=== PATIENT | female | born 1950 | race Caucasian/White ===

== ENCOUNTER 2018-11-16 10:52 | Inpatient (IN) | payer MEDICARE, OTHER, SELFPAY ==
[2018-11-16] VITALS (11 sets, daily range): BP systolic 115–141; BP diastolic 53–66; PULSE 57–81; RESP 12–18; TEMP 36.7–37.2; O2SAT 89–98; BMI 31.9; BMI 30.2
--- NOTE | 2018-11-16 11:11 | CT_ITS ---
STUDY: CT BRAIN WITHOUT CONTRAST REASON FOR EXAM: Female, 68 years old. Syncope. Increasing weakness. RADIATION DOSAGE (If Supplied By Facility): CTDIvol = ( 60.81 ) mGy, DLP = ( 1067.08 ) mGycm TECHNIQUE: Transaxial CT imaging of the brain was performed without administration of intravenous contrast material. Individualized dose optimization techniques were used for this CT. COMPARISON: No relevant priors. FINDINGS: Normal soft tissue structures. Normal calvarium. There is disproportionate enlargement of the lateral and third ventricles, as compared to the extra-axial spaces. The findings suggest normal pressure hydrocephalus (NPH). Normal white matter tracts of the cerebral hemispheres. Normal basal ganglia and thalami. Normal brainstem. Normal cerebellum. There is no intracranial hemorrhage. There are no findings of an acute ischemic infarction. Atherosclerotic calcification of the cavernous portions of the internal carotid arteries bilaterally. Normal visualized paranasal sinuses. CT/Brain/Head without Contrast IMPRESSION: Findings suggestive of normal pressure hydrocephalus. Electronically Signed: [place], at 13:38 EDT , Service support ,
--- NOTE | 2018-11-16 11:12 | EKG12_ITS ---
Test Reason : DIZZY Blood Pressure : / mmHG Vent. Rate : 073 BPM Atrial Rate : 073 BPM P-R Int : 218 ms QRS Dur : 086 ms QT Int : 396 ms P-R-T Axes : 038 004 043 degrees QTc Int : 436 ms Sinus rhythm with 1st degree A-V block Possible Anterolateral infarct , age undetermined Abnormal ECG Confirmed by JENNEI ALVARENGA, JUAN PABLO ([id number]), editor continuity and script PREETI MOHAMUD ([id number]) on 11/18/2018 9:13:56 AM Referred By: Nataly Avelar Confirmed By:JUAN PABLO SCHNEIDER MD
[2018-11-16] MEDS: 0.9% Normal Saline 1,000 ML 1000 ML IV (11:20)
[2018-11-16 11:57] LABS: Absolute Lymphocyte Count 1.09 X10^3/ul (0.83-4.51); Absolute Neutrophil Count 3.4 X10^3/uL (2.0-7.7); Basophil# 0.02 X10^3/uL; Basophil% 0.4 % (0-1); Hematocrit 44.6 % (37-47); Hemoglobin 15.2 g/dl (12.0-15.0); Lymphocyte # 1.09 X10^3/ul (4.0); Lymphocyte % 21.7 % (19-41); Mean Corp Hgb Conc 34.1 g/gl (32-36); Mean Corpuscular Hgb 31.4 pg (27.0-32.0); Mean Corpuscular Volume 92.1 fL (81-99); Mean Platelet Vol. 11.4 fl (6.2-12.0); Monocyte# 0.51 X10^3/uL; Monocyte% 10.2 % (0-10); Neutrophil # 3.39 X10^3/uL (2.7-7.7); Neutrophil % 67.5 % (47-70); Platelet Count 178 K/mm3 (150-450); RBC Distribution Width SD 46.4 fl (35.1-43.9); Red Blood Count 4.84 M/mm3 (4.2-5.4)
[2018-11-16 11:58] LABS: POSITIVE COUNT NO; POSITIVE DIFFERENTIAL NO; POSITIVE MORPHOLOGY NO
[2018-11-16 12:51] LABS: Anion Gap 5 (5-15); BUN 10 mg/dL (7-18); BUN/Creat Ratio 8.7 RATIO (10-20); Calcium,Total 7.8 mg/dL (8.5-10.1); Chloride 107 mmol/L (98-107); Creatinine, Serum 1.15 mg/dL (0.55-1.02); EST Glomerular Filtration Rate 50 mL/min (>60); Est Glom Filt Rate - Afr Amer 60 mL/min (>60); Estimated Creatinine Clearance 39.31 ml/min; Glucose 97 mg/dL (74-106); Potassium 3.6 mmol/L (3.5-5.1); Sodium Level 137 mmol/L (136-145)
[2018-11-16 13:11] LABS: Lactic Acid 1.2 mmol/L (0.4-2.0)
--- NOTE | 2018-11-16 14:08 | RAD_ITS ---
STUDY: X-RAY CHEST REASON FOR EXAM: Female, 68 years old. Chest pain after injury. TECHNIQUE: Single AP portable view of the chest. COMPARISON: Prior comparison studies are not available for review at this time. FINDINGS: Cardiac monitoring leads are present. The lungs are expanded. There may be subsegmental atelectasis in the mid right lung and left lung base. There is interstitial thickening present in both lungs. There is no demonstrated pleural abnormality. Normal size heart. Normal mediastinum and juvencio. Normal visualized pulmonary arteries. There is atherosclerotic calcification of the aortic arch with tortuosity. There is demineralization of the osseous structures. Normal visualized ribs, clavicles, and shoulders. There is no demonstrated abnormality of the visualized soft tissue structures of the upper abdomen. RAD/Chest 1 View (Portable) IMPRESSION: Bilateral basilar subsegmental atelectasis. Electronically Signed: Cee Bran MD at 17:13 EDT , Service support ,
--- NOTE | 2018-11-16 14:11 | NURSING ---
PCU OBS SYNCOPE, DIARRHEA PAINTSIL
--- NOTE | 2018-11-16 14:12 | ED.DCSUM_ITS ---
- ER Visit Summary Date of Service: 11/16/18 Chief Complaint: [Diarrhea, generalized weakness, syncope] History of Present Illness: The patient is a 68 F [presents the emergency department stating that she has not been feeling well for about for 5 days. Patient had loose stool multiple episodes over the last several days and had 2 episodes today. Patient feels lightheaded with standing and walking. Today she went to the restroom and while on the toilet patient had a syncopal episode her found her on the bathroom floor. Patient denies recent antibiotics. She denies any fevers. Patient states that she has been having frequent headaches. She denies any abdominal pain. Denies chest pain or shortness of breath. Patient was noted on arrival to had a low O2 sat of 89% on room air. Patient was placed on oxygen on arrival the emergency department.] Physical Examination: [HEENT-PERRLA, EOMI. Cranial nerves II through XII grossly intact. TMs clear. Mucous membranes moist. No adenopathy. Cardiovascular-regular rate and rhythm without murmur or ectopy Lungs-clear to auscultation, chest wall stable without crepitus or subcu emphysema Abdomen-normoactive bowel sounds, soft, nontender, no rebound or rigidity, no peritoneal signs. Extremities-intact ?4, normal range of motion, normal pulses, atraumatic] Test Results: [EKG obtained arrival shows sinus rhythm with a ventricular rate of 73 bpm with no acute I segment changes. CBC with differential is normal. Chemistries unremarkable. Troponin was less than 0.015. CT scan of the brain showed normal pressure hydrocephalus.] Emergency Department Course and Treatment: [Patient was given normal saline.] Treatment Plan: [Admit for observation.] Disposition: [Admit] Impression: [Syncope Diarrhea-suspect viral Normal pressure hydrocephalus] This note was generated with [employer] dictation software. It may contain incorrect words, spelling, and punctuation that were not noted in review of the chart prior to signing ED Disposition - Plan for ED Patient: Referrals: Efren Evans MD [Primary Care Provider] -
--- NOTE | 2018-11-16 14:13 | PCM.HP.STD ---
Problem List (1) Syncope Status: Acute Qualifiers: Syncope type: unspecified Qualified Code(s): R55 - Syncope and collapse (2) Anxiety and depression Status: Chronic (3) Chronic back pain Status: Chronic Qualifiers: Back pain laterality: unspecified Sciatica laterality: sciatica laterality unspecified History of Present Illness Date of Admission: 11/16/18 Chief Complaint: Syncope The patient is a 68 year old F past medical history of chronic back pain, anxiety/depression, irritable bowel syndrome, who comes in after an episode of syncope. Patient felt unwell this morning when she woke up, felt dizzy, will to go use the bathroom. While was in the bathroom, felt unwell, felt dizzy, felt nauseous and had a syncopal episode. She woke up not long after. Her heard a thump and went into the bathroom and found her on the floor. She denied any prior chest pain or palpitations of recent illness or diarrhea. She did not have any incontinence of stool or urine or biting of tongue. She has been having loose stools, usually has about 2 or 3 a day, had had 2 stools prior to arrival. Vitals in the ED show blood pressure 115/53, temperature of 90 8.3F, heart rate 69, respiratory 22, SPO2 was 89% on room air. Admitting CBC D was unremarkable, BMP showed creatinine of 1.15, slightly elevated from previous 0.98. Openings were negative. UA was unremarkable. EKG shows normal sinus rhythm, poor R wave progression. CT scan of the brain was suggestive of normal pressure hydrocephalus. Chest x-ray shows bilateral basilar subsegmental atelectasis Past Medical History Past Medical History (Chronic Problems): Chronic Problems Anxiety and depression (Chronic) Chronic back pain (Chronic) Allergies codeine Allergy (Verified 11/16/18 10:53) Other Home Medications: Ambulatory Orders Medication Instructions Recorded Baclofen [Lioresal] 10 mg PO TID PRN PRN 11/16/18 Lamotrigine 200 mg PO QHS 11/16/18 Oxybutynin [Ditropan] 5 mg PO QHS 11/16/18 Venlafaxine HCl [Venlafaxine HCl 37.5 mg PO QHS 11/16/18 ER] traZODone [Desyrel] 75 mg PO QHS 04/16/19 Surgical History: adenoidectomy, appendectomy, cholecystectomy, hysterectomy, tonsillectomy Psychiatric History: Anxiety, Depression 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 Denies: Anorexia, Chills, Fever, Malaise, Weight Change, Fatigue Eyes: Denies: Blurred vision, Cataracts, Conjunctivae Inflammation, Pain, Redness HEENT: Denies: Difficulty Hearing, Difficulty Swallowing, Head Aches, Hearing Changes, Sinus Congestion, Sinus Drainage Cardiovascular: Reports: Light Headedness, Syncope. Denies: Chest Pain, Claudication, Orthopnea, Palpitations, Paroxysmal Noc. Dyspnea Respiratory: Denies: Cough, Hemoptysis, Shortness of breath at rest, Shortness of breath upon exertion, Sputum production Gastrointestinal: Denies: Abdominal Pain, Constipation, Hematemesis, Nausea, Vomiting Genitourinary: Denies: Dysuria, Frequency Musculoskeletal: Denies: Joint Pain, Joint stiffness, Joint swelling, Joint Tenderness Skin: Denies: Rash, Wounds Neurological: Denies: Difficulty swallowing, Focal weakness, Numbness, Tingling Psychiatric: Denies: Anxiety, Depression, Homicidal Ideations, Suicidal Ideations Hematologic/ Lymphatic: Denies: Easy Bruising, Easy Bleeding VTE Information - Inpt Only VTE Present on Admission: No VTE Pharm Prophylaxis ordered?: Yes Patient Problems: Active and Suspected Problems Syncope (Acute) - Physical Exam General: Alert, Oriented x3, Cooperative, No apparent distress, - - on 2L oxygen HEENT: Atraumatic, PERRLA, EOMI, Normocephalic Oral: Moist Mucosa Neck: Supple Lungs: Normal air movement, Diminished Cardiovascular: Regular rate, Regular Rhythm, Normal S1, Normal S2, No murmurs Abdomen: Bowel Sounds Present, Soft, Non Tender, Non-Distended, No Hepato-splenomegaly Extremities: No edema Skin: No rashes, No breakdown Musculoskeletal: No Tenderness to Palpation of Joints or Extremities Lymphatic: No Cervical, Supraclavicular, or Inguinal Adenopathy Neurological: Cranial nerves II-XII grossly intact, Neuro grossly intact Psych/Mental Status: Normal Affect, Appropriate Vital Signs Temp Pulse Resp BP Pulse Ox 98.3 F 69 12 115/53 L 89 11/16/18 10:54 11/16/18 10:54 11/16/18 10:54 11/16/18 10:54 11/16/18 10:54 Oxygen Delivery Method Room Air Weight: 84.4 kg Body Mass Index (BMI) 31.9 Laboratory Tests Past 24 Hrs 11/16/18 11/16/18 11/16/18 11:33 11:35 11:35 WBC 5.0 RBC 4.84 Hgb 15.2 H Hct 44.6 MCV 92.1 MCH 31.4 MCHC 34.1 RDW 14.0 RDW Differential 46.4 H Plt Count 178 MPV 11.4 Immature Gran % (Auto) 0.200 Neut % (Auto) 67.5 Lymph % (Auto) 21.7 [place] % (Auto) 10.2 H Eos % (Auto) 0.0 Baso % (Auto) 0.4 Absolute Neuts (auto) 3.4 Absolute Lymphs (auto) 1.09 Total Counted Not Reportable Sodium Cancelled Potassium Cancelled Chloride Cancelled Carbon Dioxide Cancelled Anion Gap Cancelled BUN Cancelled Creatinine Cancelled Estim Creat Clear Calc Cancelled Est GFR (MDRD) Af Amer Cancelled Est GFR (MDRD) Non-Af Cancelled BUN/Creatinine Ratio Cancelled Glucose Cancelled Lactic Acid Cancelled Calcium Cancelled Troponin I Cancelled 11/16/18 11/16/18 12:25 12:25 WBC RBC Hgb Hct MCV MCH MCHC RDW RDW Differential Plt Count MPV Immature Gran % (Auto) Neut % (Auto) Lymph % (Auto) [place] % (Auto) Eos % (Auto) Baso % (Auto) Absolute Neuts (auto) Absolute Lymphs (auto) Total Counted Sodium 137 Potassium 3.6 Chloride 107 Carbon Dioxide 25.0 Anion Gap 5 BUN 10 Creatinine 1.15 H Estim Creat Clear Calc 39.31 Est GFR (MDRD) Af Amer 60 Est GFR (MDRD) Non-Af 50 L BUN/Creatinine Ratio 8.7 L Glucose 97 Lactic Acid 1.2 Calcium 7.8 L Troponin I < 0.015 Assessment/Plan All Active Problems Syncope (Acute) 68 year old F past medical history of chronic back pain, anxiety/depression, irritable bowel syndrome, who comes in after an episode of syncope. Patient's vitals were stable except for hypoxia. She says chronic smoker, no known history of COPD. 1. Syncope, likely related to dehydration and orthostatic hypotension creatinine was elevated on admission compared to her baseline, history of irritable bowel syndrome, with chronic diarrhea Plan: Admit to PCU, check orthostatic vitals, IVF, recheck orthostatic vitals every shift, 2D echo, monitor on telemetry, trend troponins 2. Hypoxia, likely secondary to atelectasis versus insidious COPD Patient is a known smoker, was saturating at 89% on admission, improved to 98% on 2 L oxygen Chest x-ray shows atelectasis Will continue on oxygen, wean off for SPO2 more than 92-94%, incentive spirometer If hypoxia persists, patient may benefit from pulmonary function testing in the outpatient 3. Anxiety/depression/chronic back pain, continue home regimen 4. Chronic diarrhea, history of irritable bowel syndrome, check stool for enteric pathogens 5. Nicotine dependence, will put on replacement 6. DVT PPx- Heparin SC Code Visit Inpatient E&M: 70478 Init Hosp L3
[2018-11-16 15:44] LABS: Mucous, Urine 0 SEEN /hpf (<or=2+); Squamous Epithelial Cells - UA 0 SEEN /hpf (5-10)
--- NOTE | 2018-11-16 15:55 | CASEMGMT ---
RN CM Assessment Introduced role of RN CM to patient, patient Rene and family at bedside.? Patient is alert, oriented and able?to participate in RN CM Assessment. ?Care providers, pharmacy, and demographics verified. Presentation: Diarrhea, Syncope Admit Dx: Syncope Re-Admit: No Barriers/Issues: Does not have Prescription coverage, Provided a few Rx savings Cards to possibly help with regular home medications. PCP: Efren Evans Specialists: None Preferred [facility]acy: [facility] Insurance: [employer], [facility] Rx Benefit:?No ?LNOK: Rene Dragan LW/HPOA: No, states was just given information on it. Living Arrangements:? Lives with in a 2 story home, 3-4 steps to enter. ADL?s: Independent with ambulation and ADL's. Transportation: Patient drives, to transport on DC DME: None HHC: None SNF: None Goal: Home DC PLAN: Home with no anticipated needs identified at this time. Israel Lundy RNCM
[2018-11-16 15:57] LABS: Color, Urine Yellow (Yellow); Glucose, Dipstick Normal (Normal); Ketone-Dipstick Negative (Negative); Leukocyte Esterase-Dipstick 25 /ul (Negative); Nitrite-Dipstick Negative (Negative); Occult Blood-Urine 150 /ul (Negative); Protein-Dipstick Negative (Negative); Urine Bilirubin Dipstick Negative (Negative); Urine Clarity Clear (Clear); Urine Urobilinogen Normal (Normal)
--- NOTE | 2018-11-16 16:05 | ECHOD_ITS ---
Reason For Study: SYNCOPE Procedure This was a 2D Doppler, Color Flow transthoracic echocardiogram. Exam performed portable in patient room. Left Ventricle Normal size and thickness. The estimated ejection fraction is 75 %. Stage 1 diastolic dysfunction. No regional wall motion abnormalities noted. Right Ventricle Normal size and thickness. Normal systolic function. Atria Normal left atrium. Normal right atrium. Normal atrial septum. Mitral Valve The mitral valve is structurally normal. No prolapse or stenosis seen. Trivial mitral valve insufficiency. Tricuspid Valve Normal tricuspid valve. Mild (1+) tricuspid valve insufficiency. Right ventricular systolic pressure estimated to be 22 mmHg. Aortic Valve Trisinus/trileaflet aortic valve. Mild diffuse aortic valve thickening. Trivial aortic valve insufficiency. Pulmonic Valve Normal pulmonic valve. Great Vessels Normal aortic root. Normal arch. Normal inferior vena cava. Inferior vena cava collapse with sniff. Pericardium/Pleural No pericardial effusion. MMode/2D Measurements & Calculations LVIDd: 4.7 cm IVSd: 1.1 cm Ao root diam: 3.2 cm LVIDs: 3.0 cm LVPWd: 1.1 cm RVDd: 3.6 cm FS: 35.4 % LAV(MOD-bp): 39.2 ml LVAd ap4: 22.7 cm2 SV(MOD-sp4): 35.4 ml LAV(MOD-bp) Indexed: 21.2 ml/m2 EDV(MOD-sp4): 58.5 ml LAV(MOD-sp2): 43.0 ml EDV(sp4-el): 61.5 ml LAV(MOD-sp4): 35.4 ml LVAs ap4: 12.7 cm2 ESV(MOD-sp4): 23.1 ml ESV(sp4-el): 24.3 ml EF(MOD-sp4): 60.5 % EF(sp4-el): 60.6 % SV(sp4-el): 37.2 ml LA A4 area: 14.5 cm2 LA dimension(2D): 3.3 cm RA A4 area: 12.6 cm2 Time Measurements MV dec time: 0.27 sec Doppler Measurements & Calculations MV E max shailesh: 81.6 cm/sec Lat Peak E' Shailesh: 8.5 cm/sec Med Peak E' Shailesh: 6.3 cm/sec MV A max shailesh: 97.8 cm/sec E/E' lat: 9.7 E/E' med: 12.9 MV E/A: 0.83 Ao V2 max: 119.6 cm/sec AI max shailesh: 305.9 cm/sec LV V1 max: 108.1 cm/sec Ao max P.7 mmHg AI max P.4 mmHg LV V1 max P.7 mmHg AI dec slope: 211.6 cm/sec2 AI P1/2t: 423.4 msec TR max shailesh: 208.8 cm/sec TR max P.4 mmHg Interpretation Summary The estimated ejection fraction is 75 %. Stage 1 diastolic dysfunction. Trivial mitral valve insufficiency. Mild (1+) tricuspid valve insufficiency. Right ventricular systolic pressure estimated to be 22 mmHg. Trivial aortic valve insufficiency. There is no comparison study available. Ordering Physician: Nataly Avelar Referring Physician: SKYLAR SANCHEZ Performed By: Linda Piedra, KIMCS, RVT
[2018-11-16 16:15] LABS: Bacteria 1+ /hpf (None Seen); Red Blood Cells-Urine 0-5 SEEN /hpf (0-5); White Blood Cells 5-10 SEEN /hpf (0-5)
[2018-11-16 16:35] LABS: AST(SGOT) 25 U/L (15-37); Alanine Aminotransfer ALT/SGPT 19 U/L (13-56); Albumin, Serum 3.4 g/dL (3.2-5.0); Alkaline Phosphatase 90 U/L (45-117); Bilirubin, Direct 0.07 mg/dL (0.00-0.30); Globulin 3.5 g/dL (2.2-4.2); Protein, Total 6.9 g/dL (6.4-8.2)
[2018-11-16] MEDS: 0.9% Normal Saline 1,000 ML 100 ML IV (17:18)
[2018-11-16] MEDS: Ipratropium/Albuterol Sulfate 3 ML AMPUL.NEB INHALATION (19:30)
[2018-11-16] MEDS: Heparin Injection (Vial) 5,000 UNIT/ML VIAL 5000 UNIT SC (21:11)
[2018-11-16] MEDS: traZODone 50 MG Tablet 75 MG PO (23:38)
[2018-11-16] MEDS: lamoTRIgine 100 MG Tablet 200 MG PO (23:38)
[2018-11-16] MEDS: Venlafaxine XR 37.5 MG Capsule PO (23:39)
[2018-11-17] VITALS (12 sets, daily range): BP systolic 104–129; BP diastolic 54–85; PULSE 66–99; RESP 16–18; TEMP 37.1–37.9; O2SAT 93–95
[2018-11-17] MEDS: 0.9% Normal Saline 1,000 ML 100 ML IV (03:10)
[2018-11-17 05:37] LABS: Absolute Lymphocyte Count 1.25 X10^3/ul (0.83-4.51); Absolute Neutrophil Count 2.5 X10^3/uL (2.0-7.7); Basophil# 0.01 X10^3/uL; Basophil% 0.2 % (0-1); Eosinophil# 0.02 X10^3/uL; Eosinophils% 0.5 % (0-5); Hematocrit 41.3 % (37-47); Lymphocyte # 1.25 X10^3/ul (4.0); Lymphocyte % 29.7 % (19-41); Mean Corp Hgb Conc 33.9 g/gl (32-36); Mean Corpuscular Hgb 31.2 pg (27.0-32.0); Mean Platelet Vol. 11.4 fl (6.2-12.0); Monocyte# 0.44 X10^3/uL; Monocyte% 10.5 % (0-10); Neutrophil # 2.48 X10^3/uL (2.7-7.7); Neutrophil % 58.9 % (47-70); Platelet Count 164 K/mm3 (150-450); RBC Distribution Width CV 13.7 % (11.6-14.6); RBC Distribution Width SD 45.4 fl (35.1-43.9); Red Blood Count 4.49 M/mm3 (4.2-5.4); White Blood Count 4.2 K/mm3 (4.4-11.0)
[2018-11-17 05:43] LABS: POSITIVE COUNT NO; POSITIVE DIFFERENTIAL NO; POSITIVE MORPHOLOGY NO
[2018-11-17 05:57] LABS: Anion Gap 5 (5-15); BUN 15 mg/dL (7-18); BUN/Creat Ratio 16.8 RATIO (10-20); Calcium,Total 7.7 mg/dL (8.5-10.1); Chloride 109 mmol/L (98-107); Creatinine, Serum 0.89 mg/dL (0.55-1.02); EST Glomerular Filtration Rate 66 mL/min (>60); Est Glom Filt Rate - Afr Amer 80 mL/min (>60); Estimated Creatinine Clearance 50.79 ml/min; Glucose 96 mg/dL (74-106); Potassium 3.6 mmol/L (3.5-5.1); Sodium Level 138 mmol/L (136-145)
[2018-11-17] MEDS: Heparin Injection (Vial) 5,000 UNIT/ML VIAL 5000 UNIT SC ×2 (06:39→15:10)
[2018-11-17] MEDS: Ipratropium/Albuterol Sulfate 3 ML AMPUL.NEB INHALATION (07:46)
--- NOTE | 2018-11-17 17:10 | DCINST_ITS ---
- Discharge Diagnoses Current Active Problems: Current Active and Chronic Problems Syncope (Acute) Anxiety and depression (Chronic) Chronic back pain (Chronic) You will use the following diet at home:: No restrictions Your food should be the consistency of: Regular Your liquids should be the consistency of: Regular/Thin Discharge Activity: Return to Normal Activity Weight Bearing Status: Full weight bearing Allergies/Adverse Reactions: Allergies codeine Allergy (Verified 11/16/18 10:53) Other Medications to take at Discharge Baclofen [Lioresal] 10 mg PO TID PRN PRN 11/16/18 Lamotrigine 200 mg PO QHS 11/16/18 Oxybutynin [Ditropan] 5 mg PO QHS 11/16/18 Venlafaxine HCl [Venlafaxine HCl ER] 37.5 mg PO QHS 11/16/18 traZODone [Desyrel] 75 mg PO QHS 11/16/18 Primary Care Physician: Efren Evans MD [Primary Care Provider] - Please follow up with your Primary Care Physician in: TWO WEEKS Test Results: Test results from this visit will be discussed in further detail at your follow- up appointment, if applicable.
--- NOTE | 2018-11-20 18:41 | DS.PCM_ITS ---
Discharge Date and Diagnosis Date of Admission: 11/16/18 Date of Discharge: 11/17/18 - Primary Discharge Diagnosis #1 vasovagal syncope #2 atelectasis #3 dehydration - Secondary Discharge Diagnosis Chronic Problems Anxiety and depression (Chronic) Chronic back pain (Chronic) Hospital Course and Treatment Operations: None Procedures: None Summary of Care Provided: The patient is a 68 year old F who was seen in the emergency room at [facility] with chief complaint of a syncopal episode while sitting on her commode in her bathroom. Work-up in the emergency room included labs which were unremarkable other than an elevated creatinine, CT of the brain showed indication of possible normal pressure hydrocephalus but the patient has no symptoms of normal pressure hydrocephalus. Chest x-ray showed atelectasis, patient's pulse ox was slightly low at 89% on room air. Patient was admitted to PCU, monitored on telemetry, echocardiogram was obtained which was unremarkable. On 11/17/2018, patient was seen and examined: On examination she appeared in good health and spirits. Vital signs as documented. Skin warm and dry and without overt rashes. Neck without JVD. Lungs clear. Heart exam notable for regular rhythm, normal sounds and absence of murmurs, rubs or gallops. Abdomen unremarkable and without evidence of organomegaly, masses, or abdominal aortic enlargement. Extremities nonedematous. Neuro: Cranial nerves II through XII are grossly intact, no focal motor deficits were noted, sensation to light touch and pinprick is intact. Psych: Patient is alert and oriented x3, she does not appear anxious or depressed On 11/17/2018, patient was seen and examined and felt to be in stable condition for discharge home - Physical Exam Vital Signs Temp Pulse Resp BP Pulse Ox 99.1 F 84 16 109/85 H 95 11/17/18 17:53 11/17/18 17:53 11/17/18 17:53 11/17/18 17:53 11/17/18 17:53 Oxygen Flow Rate (L/min) 2 Oxygen Delivery Method Room Air Weight: 79.9 kg Body Mass Index (BMI) 30.2 Discharge Activity: Return to Normal Activity Weight Bearing Status: Full weight bearing Home Medications: Medications to take at Discharge Baclofen [Lioresal] 10 mg PO TID PRN PRN 11/16/18 Lamotrigine 200 mg PO QHS 11/16/18 Oxybutynin [Ditropan] 5 mg PO QHS 11/16/18 Venlafaxine HCl [Venlafaxine HCl ER] 37.5 mg PO QHS 11/16/18 traZODone [Desyrel] 75 mg PO QHS 11/16/18 Primary Care Physician: Efren Evans MD [Primary Care Provider] - Please follow up with your Primary Care Physician in: TWO WEEKS Disposition: Home Minutes spent on discharge:: 31 Patient Condition:: Stable Medical Necessity - Tobacco Use Smoking Status: Current every day smoker Tobacco Use: Non-smoker Meaningful Use Info Meaningful Use Diagnoses (Choose all that apply): None applicable Code Visit Inpatient E&M: 37668 Disch Hosp
== END 2018-11-17 18:08 | disposition home or self-care (01) | DRG 641 ==
LOC: ED 14:55 → PCU 15:06
PROVIDERS: Admitting Provider Internal Medicine; Emergency Provider Emergency Medicine; Family Provider Family Medicine; PCP Family Medicine; Referring Provider Internal Medicine; Visit Provider Internal Medicine
DX: E86.0 Dehydration (principal); I95.1 Orthostatic hypotension; K58.0 Irritable bowel syndrome with diarrhea; G89.29 Other chronic pain; M54.9 Dorsalgia, unspecified; R09.02 Hypoxemia; F32.9 Major depressive disorder, single episode, unspecified; F41.9 Anxiety disorder, unspecified; F17.200 Nicotine dependence, unspecified, uncomplicated
CPT/HCPCS: 36415; 70450; 71045; 80048; 80076; 81001; 83605; 84484; 85025; 87506; 93005; 93306; 94640; 97161; 97165; 99285; 99406; J7030

== ENCOUNTER 2022-01-18 21:11 | Emergency (ER) | payer MEDICARE, SELFPAY ==
[2022-01-18 21:13] VITALS: BP 171/69; PULSE 56; RESP 16; TEMP 36.6; O2SAT 98; BMI 30.9
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
--- NOTE | 2022-01-18 21:53 | EDS_ITS ---
HPI History of Present Illness Chief Complaint: Fall Informant: patient and spouse/S.O. Narrative Narrative: 71-year-old female presents to the emergency room with low back pain. Patient states that 2 days ago she sustained a fall in the garage landing on her but tock. She notes that she felt a pop in her back. She tells me that in the 70s she had a lower lumbar back fusion. She states that this failed. She has had chronic low back pain since. She states that she did not feel much pain or difference in pain after the fall until Thursday morning when she woke up. She describes it is on both sides right greater than left and in the midline. She states both of her legs ache but there is no radicular pain. No bowel or bladder dysfunction other than her chronic urinary incontinence. No fevers. No red flag history. PFSH PFSH Medical History Anxiety Bipolar disorder Depression History of spinal fracture Hyperlipidemia Hypothyroidism Smoker Home Medications lamotrigine 200 mg tablet 25 mg PO DAILY DEPRESSION 11/16/18 [History Last Taken 11/15/18] trazodone 50 mg tablet 50 mg PO QHS sleep 11/16/18 [History Last Taken 11/15/18] venlafaxine 37.5 mg capsule,extended release 24 hr 37.5 mg PO QHS depression 11/16/18 [History Last Taken 11/15/18] aspirin 81 mg tablet,delayed release 81 mg PO DAILY 01/18/22 [History Last Taken Unknown] atorvastatin 20 mg tablet 20 mg PO DAILY 01/18/22 [History Last Taken Unknown] cholecalciferol (vitamin D3) 125 mcg (5,000 unit) tablet (Vitamin D3) 125 mcg PO DAILY 01/18/22 [History Last Taken Unknown] cyanocobalamin (vitamin B-12) 1,000 mcg tablet 1,000 mcg PO QODAY 01/18/22 [History Last Taken Unknown] famotidine 20 mg tablet 20 mg PO DAILY 01/18/22 [History Last Taken Unknown] folic acid 1 mg tablet 1 mg PO DAILY 01/18/22 [History Last Taken Unknown] levothyroxine 25 mcg tablet 25 mcg PO DAILY 01/18/22 [History Last Taken Unknown] meclizine 25 mg tablet 25 mg PO Q6H PRN PRN Dizziness 01/18/22 [History Last Taken Unknown] topiramate 50 mg tablet 50 tab PO BID 01/18/22 [History Last Taken Unknown] venlafaxine 75 mg tablet 75 mg PO DAILY 01/18/22 [History Last Taken Unknown] Allergy/AdvReac Type Severity Reaction Status Date / Time codeine Allergy Other Verified 01/18/22 21:41 Surgical History History of appendectomy History of cholecystectomy History of spinal fusion Social History (Updated 01/18/22 @ 21:[address] Navneet Sands DO) current gender identity: female Smoking Status: Current every day smoker tobacco type: cigarettes substance use type: does not use ROS ROS ED Constitutional Constitutional ED: Denies chills or weight loss Eyes Eyes: Denies change in vision or diplopia ENT ENT ED: Denies ear pain, rhinorrhea or sore throat Cardiovascular Cardiovascular: Denies chest pain, orthopnea, palpitations or racing heartbeat Respiratory/Chest Respiratory/Chest: Denies cough, dyspnea or orthopnea Gastrointestinal Gastrointestinal: Denies abdominal pain, diarrhea, nausea or vomiting Genitourinary Genitourinary ED: Denies dysuria, hematuria or urinary frequency Musculoskeletal Musculoskeletal: Reports back pain; Denies arthralgias, myalgias or neck pain Integumentary Denies abscess or rash Neurologic Neurologic: Denies headache(s), paresthesias or weakness Psychiatric Psychiatric: Denies anxiety, depression, suicidal ideation or suicidal thoughts Endocrine Endocrinology: Denies polydipsia, polyphagia or polyuria Allergic/Immunologic Allergic/Immunologic ED: Denies mouth swelling, tongue swelling or urticaria EXAM Physical Exam Const Vital Signs: 01/18/22 21:13 01/18/22 21:35 Temperature 97.8 F Temperature Source Temporal Pulse Rate 56 L Respiratory Rate 16 Respiratory Effort Normal Respiratory Depth Normal Respiratory Pattern Normal Blood Pressure 171/69 H Blood Pressure Mean 103 Pulse Ox 98 Oxygen Delivery Method Room Air Room Air Positive well nourished and well developed General Appearance ED: well developed HEENT Reports normocephalic, head/scalp atraumatic and moist mucous membranes Eyes PERRL and EOMs intact bilaterally Neck no lymphadenopathy, supple and no JVD Resp normal respiratory effort and clear to auscultation bilaterally Cardio regular rate, regular rhythm and no murmurs GI normal to inspection, nondistended, normoactive bowel sounds and non-tender Palpation: soft Back/Spine no CVA tenderness Back/Spine Narrative: Patient has tenderness to palpation across the lower lumbar region. She has no pain in her buttock. There is no tissue texture changes to suggest underlying infection. There is a well-healed lumbar incision. Extremity normal to inspection General Extremety ED: Negative for edema General Extremity: Negative for edema Neuro oriented x3 and CN's II-XII intact bilaterally Sensorium / Orientation: alert Motor Exam: strength 5/5 throughout Deep Tendon Reflexes: Rt Patellar (L4): 2+, Lt Patellar (L4): 2+, Rt Ankle (S1): 2+ and Lt Ankle (S1): 2+ Deep Tendon Reflexes Back: Rt Patellar (L4): 2+, Lt Patellar (L4): 2+, Rt Ankle (S1): 2+ and Lt Ankle (S1): 2+ Psych mental status grossly normal Mood & Affect: Negative for depressed or tearful Skin no rashes or lesions noted and no wounds Discharge Plan Triage Chief Complaint: Fall ED Provider: Navneet Sands Dx/Rx/DC Orders Prescriptions: No Action venlafaxine 37.5 MG Cap.Er.24h 37.5 mg PO QHS lamotrigine 200 MG tablet 25 mg PO DAILY trazodone 50 MG tablet 50 mg PO QHS atorvastatin 20 mg Tablet 20 mg PO DAILY venlafaxine [Effexor] 75 mg Tablet 75 mg PO DAILY cyanocobalamin (vitamin B-12) 1,000 mcg Tablet 1,000 mcg PO QODAY aspirin [Aspir-81] 81 mg Tablet,Delayed Release (Dr/Ec) 81 mg PO DAILY levothyroxine 25 mcg Tablet 25 mcg PO DAILY famotidine 20 mg Tablet 20 mg PO DAILY meclizine 25 mg Tablet 25 mg PO Q6H PRN PRN (Reason: Dizziness) folic acid 1 mg Tablet 1 mg PO DAILY topiramate 50 mg tablet 50 tab PO BID Label Comments: TAKE 1 TABLET BY MOUTH TWICE A DAY cholecalciferol (vitamin D3) [Vitamin D3] 125 mcg (5,000 unit) Tablet 125 mcg PO DAILY Primary Care Provider: Efren Evans Referrals: Efren Evans MD [Primary Care Provider] -
[2022-01-18] MEDS: oxyCODONE 5 MG Tablet 10 MG PO (22:08)
== END 2022-01-18 23:17 | disposition home or self-care (01) ==
PROVIDERS: Emergency Provider Emergency Medicine; PCP Family Medicine; Visit Provider Emergency Medicine
DX: M54.50 Low back pain, unspecified (principal); F31.9 Bipolar disorder, unspecified; E78.5 Hyperlipidemia, unspecified; F17.210 Nicotine dependence, cigarettes, uncomplicated; E03.9 Hypothyroidism, unspecified
CPT/HCPCS: 72131; 99282

== ENCOUNTER 2022-11-11 13:58 | Emergency (ER) | payer MEDICARE, SELFPAY ==
[2022-11-11 14:00] VITALS: BP 81/48; PULSE 84; RESP 23; TEMP 36.4; O2SAT 94; BMI 31.6
[2022-11-11 14:06] VITALS: BP 95/60; PULSE 76; RESP 28; O2SAT 92
--- NOTE | 2022-11-11 14:10 | EDS_ITS ---
HPI History of Present Illness Chief Complaint: Syncope Detail of Chief Complaint: Falls x2 at home today Informant: patient and spouse/S.O. Narrative Narrative: Patient is a 72-year-old female who is presenting to the ER today with chief c omplaint of 2 falls at home. Patient currently has mild headache, she has been having headache for months. Patient been told that she has normal pressure hydrocephalus, she has an appointment on November 23 at the [facility] to see a neurologist and possibly have a spinal tap/lumbar puncture to drain fluid if needed. Patient currently has mild headache, no chest pain or shortness of breath. No abdominal pain, nausea or vomiting. Patient states she has been having intermittent loose stool and incontinence of stool, this has been ongoing for months secondary to elevated fluid interventricle in the brain she has been told. Patient has no new acute saddle seizure cauda equina. No abdominal pain, no nausea, no vomiting. Patient was covered in stool when she arrived, she was cleaned up by nursing staff. Patient's and daughter arrived shortly after patient arrived by EMS. Patient's was at home for both of her falls. Patient was walking to the bathroom, she started to slump down, patient's helped lower to the ground for the first fall. Patient then was able to sit up on the couch after 5 to 7 minutes, and then she was walking again to the bathroom but she is slumped again with . Patient initially refused to go to the ER when wanted to call, the second time she slumped patient called 911 and patient agreed. Patient is otherwise asymptomatic at this time. Patient does ambulate at home with her 2 feet at home. Patient has been was a good source of history as well, stated that she did not hit her head. She is on no blood thinners. Patient has no new headache or neck pain, she has chronic dull headache that she has been told is secondary to elevated fluid in her ventricles of her brain. Patient had no new injury to her arms or legs. Patient has superficial abrasions to the right forearm. Patient is uncertain when her last tetanus shot was. No other acute complaints PFSH PFSH Medical History Anxiety Bipolar disorder Depression History of spinal fracture Hyperlipidemia Hypothyroidism Smoker Home Medications lamotrigine 200 mg tablet 25 mg PO DAILY DEPRESSION 11/16/18 [History Last Taken 11/15/18] trazodone 50 mg tablet 50 mg PO QHS sleep 11/16/18 [History Last Taken 11/15/18] venlafaxine 37.5 mg capsule,extended release 24 hr 37.5 mg PO QHS depression 11/16/18 [History Last Taken 11/15/18] aspirin 81 mg tablet,delayed release 81 mg PO DAILY 01/18/22 [History Last Taken Unknown] atorvastatin 20 mg tablet 20 mg PO DAILY 01/18/22 [History Last Taken Unknown] cholecalciferol (vitamin D3) 125 mcg (5,000 unit) tablet (Vitamin D3) 125 mcg PO DAILY 01/18/22 [History Last Taken Unknown] cyanocobalamin (vitamin B-12) 1,000 mcg tablet 1,000 mcg PO QODAY 01/18/22 [History Last Taken Unknown] diazepam 5 mg tablet 5 mg PO Q8 PRN Muscle Spasm #15 tabs 01/18/22 [Rx Last Taken Unknown] famotidine 20 mg tablet 20 mg PO DAILY 01/18/22 [History Last Taken Unknown] folic acid 1 mg tablet 1 mg PO DAILY 01/18/22 [History Last Taken Unknown] levothyroxine 25 mcg tablet 25 mcg PO DAILY 01/18/22 [History Last Taken Unknown] meclizine 25 mg tablet 25 mg PO Q6H PRN PRN Dizziness 01/18/22 [History Last Taken Unknown] oxycodone-acetaminophen 5 mg-325 mg tablet 1 tab PO Q6H PRN PRN Pain 3 days #12 TABLETS 01/18/22 [Rx Last Taken Unknown] topiramate 50 mg tablet 50 tab PO BID 01/18/22 [History Last Taken Unknown] venlafaxine 75 mg tablet 75 mg PO DAILY 01/18/22 [History Last Taken Unknown] Allergy/AdvReac Type Severity Reaction Status Date / Time codeine Allergy Other Verified 01/18/22 21:41 Surgical History History of appendectomy History of cholecystectomy History of spinal fusion Social History (Updated 01/18/22 @ 21:[address] Navneet Sands DO) Smoking Status: Current every day smoker tobacco type: cigarettes substance use type: does not use ROS ROS ED ROS Narrative REVIEW OF SYSTEMS: Unless otherwise stated in this report the patient's positive and negative responses for review of systems for constitutional, eyes, ENT, cardiovascular, respiratory, gastrointestinal, neurological, , musculoskeletal, and integument systems and related systems to the presenting problem are either stated in the history of present illness or were not pertinent or were negative for the symptoms and/or complaints related to the presenting medical problem. EXAM Physical Exam Narrative Exam Narrative: Vital signs reviewed and patient is not hypoxic. General: The patient appears well and in no apparent distress. Patient is resting comfortably on cart. Not toxic, lethargic, or listless. Skin: Warm, dry, no pallor noted. There is no rash noted. Head: Normocephalic, atraumatic, patient has no tenderness palpation to bilateral frontal maxillary sinus. No tenderness to palpation to midline or bilateral paracervical soft tissue, full range of motion of cervical spine no difficulty. No meningeal signs or symptoms. Eye: Normal conjunctiva, no drainage, EOMI. PERRL. Ears, Nose, Mouth, and Throat: oral mucosa is dry. Nares patent. Mouth without vesicles. Ear canals patent. Tm's without Erythema. No raccoon eyes, benz signs, or hemotympanum bilateral. Cardiovascular: Regular Rate and Rhythm, no murmurs, gallops, or rubs Respiratory: Patient is in no distress, no accessory muscle use, lungs are clear to auscultation, no wheezing, rales or rhonchi Back: non-tender, no CVA tenderness bilaterally to percussion. NO CTLS midline or paracervicl tenderness to palpation. GI: Soft, obese, no flank pain bilateral, no rash, otherwise no tenderness to palpation, no masses appreciated. No rebound, guarding, or rigidity noted. Musculoskeletal: The patient has full range of motion of all extremities and joints with no difficulty. Patient has no motor, no sensory deficits. Neurological: A&O x4, normal speech, no focal neurological deficits. Psychiatric: Cooperative Const Vital Signs: 11/11/22 14:00 11/11/22 14:06 11/11/22 14:06 Temperature 97.6 F L Temperature Source Temporal Pulse Rate 84 76 Respiratory Rate 23 H 28 H Respiratory Effort Normal Non-Labored Respiratory Pattern Normal Blood Pressure 81/48 L 95/60 Blood Pressure Mean 59 71 Pulse Ox 94 92 Oxygen Delivery Method Room Air Room Air 11/11/22 15:20 11/11/22 15:51 11/11/22 16:04 Temperature Temperature Source Pulse Rate 72 75 70 Respiratory Rate 26 H 23 H 25 H Respiratory Effort Respiratory Pattern Blood Pressure 108/93 H 134/68 H 134/68 H Blood Pressure Mean 98 90 90 Pulse Ox 93 91 91 Oxygen Delivery Method Room Air Room Air Room Air 11/11/22 16:18 Temperature Temperature Source Pulse Rate 82 Respiratory Rate 24 H Respiratory Effort Respiratory Pattern Blood Pressure 127/65 H Blood Pressure Mean Pulse Ox 93 Oxygen Delivery Method MDM [facility] Lab Data Attestation: I reviewed the patient's lab results. Labs: Laboratory Results - last 24 hr 11/11/22 11/11/22 11/11/22 13:55 13:55 14:30 WBC 4.1 L RBC 3.70 L Hgb 12.3 Hct 36.7 L MCV 99.2 H MCH 33.2 H MCHC 33.5 RDW Std Deviation 52.9 H RDW Coeff of Sabino 14.6 Plt Count 157 MPV 12.1 H Immature Gran % (Auto) 0.700 Neut % (Auto) 53.3 Lymph % (Auto) 32.0 [place] % (Auto) 13.1 H Eos % (Auto) 0.2 Baso % (Auto) 0.7 Absolute Neuts (auto) 2.2 Absolute Lymphs (auto) 1.32 Nucleated RBC % 0 Sodium 138 Potassium 3.1 L Chloride 111 H Carbon Dioxide 19.0 L Anion Gap 8 BUN 11 Creatinine 1.34 H Estim Creat Clear Calc 31.81 Est GFR (MDRD) Af Amer 50 L Est GFR (MDRD) Non-Af 41 L BUN/Creatinine Ratio 8.2 L Glucose 135 H Lactic Acid 1.9 Calcium 8.9 Total Bilirubin 0.50 AST 34 ALT 38 Alkaline Phosphatase 118 H Troponin I High Sens 8 Total Protein 7.4 Albumin 3.8 Globulin 3.6 Albumin/Globulin Ratio 1.1 Lipase 22 Urine Color Urine Clarity Urine pH Ur Specific Barney Urine Protein Urine Glucose (UA) Urine Ketones Urine Occult Blood Urine Nitrite Urine Bilirubin Urine Urobilinogen Ur Leukocyte Esterase Urine RBC Urine WBC Ur Squamous Epith Cells Urine Bacteria Urine Mucus POC Glucose 11/11/22 11/11/22 14:42 Unknown WBC RBC Hgb Hct MCV MCH MCHC RDW Std Deviation RDW Coeff of Sabino Plt Count MPV Immature Gran % (Auto) Neut % (Auto) Lymph % (Auto) [place] % (Auto) Eos % (Auto) Baso % (Auto) Absolute Neuts (auto) Absolute Lymphs (auto) Nucleated RBC % Sodium Potassium Chloride Carbon Dioxide Anion Gap BUN Creatinine Estim Creat Clear Calc Est GFR (MDRD) Af Amer Est GFR (MDRD) Non-Af BUN/Creatinine Ratio Glucose Lactic Acid Calcium Total Bilirubin AST ALT Alkaline Phosphatase Troponin I High Sens Total Protein Albumin Globulin Albumin/Globulin Ratio Lipase Urine Color Yellow Urine Clarity Clear Urine pH 7.0 Ur Specific Barney 1.010 Urine Protein 15 H Urine Glucose (UA) Normal Urine Ketones Negative Urine Occult Blood 25 H Urine Nitrite Negative Urine Bilirubin Negative Urine Urobilinogen Normal Ur Leukocyte Esterase Negative Urine RBC 0-5 SEEN Urine WBC 0 SEEN Ur Squamous Epith Cells 0 SEEN Urine Bacteria RARE Urine Mucus 0 SEEN POC Glucose 109 H Radiography Chest X-Ray - ED: 1 View and Read by ED Physician (Chest x-ray was reviewed by Dr. Michelle. No acute cardiopulmonary disease, no infiltrate, no effusion.) Diagnostic Testing: Clinical Impression(s) from Imaging Studies Brain CT 11/11/22 14:19 IMPRESSION: No acute intracranial findings. Stable CT brain. Correlate for adult-normal pressure hydrocephalus. Electronically Signed: Josesito Sandoval MD at 15:09 EDT , Chest X-Ray 11/11/22 14:50 IMPRESSION: No acute pulmonary process Electronically Signed: Dwaine Adams MD at 15:04 EDT , EKG Initial EKG: Attestation: I personally reviewed and interpreted this EKG as follows: Comments: EKG interpretation. Normal sinus rhythm at 76 beats a minute. Normal axis deviation. AK interval 222, first-degree AV block. No STEMI. No acute ectopy, QTc of 434 compared to EKG on November 16, 2018, no acute changes on today's EKG Treatment and Re-Evaluation Comments:: CT the brain shows no other acute findings. Patient has an appointment on November 23 with a neurosurgeon to discuss possible normal pressure hydrocephalus and to see if she would need a spinal tap to help decrease fluid in her ventricles to help with her headaches. Patient was initially hypotensive when she arrived. Patient had 2 L of IV fluid that helped with her pressure, normotensive at discharge. Patient's potassium was low 3.1, she was given 40 mEq of potassium to drink. Patient feels much better after IV fluids. Chest x- ray, EKG shows no other acute findings. Lactic acid was negative. Patient will be discharged to continue increasing Gatorade, Powerade, and fluids at home. Patient will follow-up with PCP. No questions at disposition. Patient feels safe going home, she does not want to be admitted to the hospital overnight. and daughter at bedside, they feel comfortable taking her home as well. Discharge Plan Triage Chief Complaint: Syncope ED Provider: Efren Michelle Dx/Rx/DC Orders Clinical Impression: Syncope, (Idiopathic) normal pressure hydrocephalus Instructions: Causes of Syncope, Dehydration, Hypokalemia Dc, ED Fainting, Uncertain Cause, ED Dizziness or Syncope ... Prescriptions: No Action venlafaxine 37.5 MG capsule,extended release 24hr 37.5 mg PO QHS lamotrigine 200 MG tablet 25 mg PO DAILY trazodone 50 MG tablet 50 mg PO QHS atorvastatin 20 mg Tablet 20 mg PO DAILY venlafaxine [Effexor] 75 mg Tablet 75 mg PO DAILY cyanocobalamin (vitamin B-12) 1,000 mcg Tablet 1,000 mcg PO QODAY aspirin [Aspir-81] 81 mg Tablet,Delayed Release (Dr/Ec) 81 mg PO DAILY levothyroxine 25 mcg Tablet 25 mcg PO DAILY famotidine 20 mg Tablet 20 mg PO DAILY meclizine 25 mg Tablet 25 mg PO Q6H PRN PRN (Reason: Dizziness) folic acid 1 mg Tablet 1 mg PO DAILY topiramate 50 mg tablet 50 tab PO BID Label Comments: TAKE 1 TABLET BY MOUTH TWICE A DAY cholecalciferol (vitamin D3) [Vitamin D3] 125 mcg (5,000 unit) Tablet 125 mcg PO DAILY oxycodone-acetaminophen [oxycodone-acetaminophen] 5-325 mg tablet 1 tab PO Q6H PRN PRN (Reason: Pain) 3 Days Qty: 12 0RF diazepam [diazepam] 5 mg tablet 5 mg PO Q8 PRN (Reason: Muscle Spasm) Qty: 15 0RF Primary Care Provider: Efren Evans Referrals: Efren Evans MD [Primary Care Provider] - Activity Restrictions/Additional Instructions: A copy of your CAT scan of the brain was given to you for your records. There is comment on your CT report about adult normal pressure hydrocephalus as well. Your potassium was 3.1, oral potassium was given you to drink. Patient is to increase Gatorade, Powerade at home. Continue multivitamin. Follow-up with PCP if any other acute complaints or concerns. Disposition Disposition: Home, Self Care Discharge Date/Time: 11/11/22 16:42
--- NOTE | 2022-11-11 14:19 | CT_ITS ---
INDICATION: Syncope. EXAMINATION: CT Head or Brain W/O Contrast Injection TECHNIQUE: Multiple axial images were obtained of the head without intravenous contrast. A radiation dose optimization technique was used for this scan. IV Contrast dosage and agent: None. COMPARISON: CT brain November 16, 2018. FINDINGS: BRAIN PARENCHYMA: No intra- or extra-axial hemorrhage. No evidence of acute infarct. No intracranial mass or mass effect. No vasogenic edema. There is preservation of the tello/white matter interface. Parenchymal volume loss and small vessel ischemic disease changes. Posterior fossa structures are unremarkable. CSF SPACES: Stable size and configuration of the ventricles and sulci. Ventricles appear mildly enlarged out of portion of the sulci. Basal cisterns are patent. No abnormal extra-axial fluid collection. CALVARIUM, SKULL BASE, PARANASAL SINUSES AND MASTOID AIR CELLS: Clear. No discrete lytic or blastic abnormalities. Calvarium is intact. ORBITS: Both globes, extraocular muscles, optic nerves and retrobulbar fat appear unremarkable. ASPECTS Score for Acute Strokes: 10 CT/Brain/Head without Contrast IMPRESSION: No acute intracranial findings. Stable CT brain. Correlate for adult-normal pressure hydrocephalus. Electronically Signed: Josesito Sandoval MD at 15:09 EDT ,
[2022-11-11] MEDS: 0.9% Normal Saline 1,000 ML 1000 ML IV ×2 (14:24→14:39)
--- NOTE | 2022-11-11 14:50 | RAD_ITS ---
STUDY: X-RAY CHEST REASON FOR EXAM: Female, 72 years old. syncope TECHNIQUE: Single AP portable view of the chest. COMPARISON: 11/16/2018 FINDINGS: EKG leads overlie the chest The lungs are clear and expanded. There is no demonstrated pleural abnormality. Normal size heart. Normal mediastinum and juvencio. Normal visualized pulmonary arteries. Normal visualized aortic arch and descending thoracic aorta. There are diffuse degenerative changes of the visualized thoracic spine. Normal visualized ribs, clavicles, and shoulders. There is no demonstrated abnormality of the visualized soft tissue structures of the upper abdomen. RAD/Chest 1 View (Portable) IMPRESSION: No acute pulmonary process Electronically Signed: Dwaine Adams MD at 15:04 EDT ,
[2022-11-11 15:00] LABS: Lactic Acid 1.9 mmol/L (0.4-1.9)
[2022-11-11 15:04] LABS: Absolute Lymphocyte Count 1.32 X10^3/uL (0.83-4.51); Absolute Neutrophil Count 2.2 X10^3/uL (2.0-7.7); Basophil# 0.03 X10^3/uL; Basophil% 0.7 % (0-1); Eosinophil# 0.01 X10^3/uL; Eosinophils% 0.2 % (0-5); Hematocrit 36.7 % (37-47); Hemoglobin 12.3 g/dL (12.0-15.0); Lymphocyte # 1.32 X10^3/ul (0.83-4.51); Mean Corp Hgb Conc 33.5 g/dL (32-36); Mean Corpuscular Hgb 33.2 pg (27.0-32.0); Mean Corpuscular Volume 99.2 fL (81-99); Mean Platelet Vol. 12.1 fl (6.2-12.0); Monocyte# 0.54 X10^3/uL; Monocyte% 13.1 % (0-10); NRBC Flagged by Analyzer 0 % (0-5); Neutrophil % 53.3 % (47-70); Platelet Count 157 K/mm3 (150-450); RBC Distribution Width CV 14.6 % (11.6-14.6); RBC Distribution Width SD 52.9 fl (35.1-43.9); White Blood Count 4.1 K/mm3 (4.4-11.0)
[2022-11-11 15:06] LABS: Bedside Glucose 109 mg/dL (74-106)
[2022-11-11 15:14] LABS: ALB/GLOB Ratio 1.1 RATIO (0.9-2.4); AST(SGOT) 34 U/L (15-37); Alanine Aminotransfer ALT/SGPT 38 U/L (13-56); Albumin, Serum 3.8 g/dL (3.2-5.0); Alkaline Phosphatase 118 U/L (45-117); Anion Gap 8 (5-15); BUN 11 mg/dL (7-18); BUN/Creat Ratio 8.2 RATIO (10-20); Calcium,Total 8.9 mg/dL (8.5-10.1); Chloride 111 mmol/L (98-107); Creatinine, Serum 1.34 mg/dL (0.55-1.02); EST Glomerular Filtration Rate 41 mL/min (>60); Est Glom Filt Rate - Afr Amer 50 mL/min (>60); Estimated Creatinine Clearance 31.81 ml/min; Globulin 3.6 g/dL (2.2-4.2); Glucose 135 mg/dL (74-106); Lipase 22 U/L (13-75); Potassium 3.1 mmol/L (3.5-5.1); Protein, Total 7.4 g/dL (6.4-8.2); Sodium Level 138 mmol/L (136-145); Troponin-I HS 8 pg/mL (3.0-54.0)
[2022-11-11 15:20] VITALS: BP 108/93; PULSE 72; RESP 26; O2SAT 93
[2022-11-11] MEDS: 0.9% Normal Saline 1,000 ML 150 ML IV (15:48)
[2022-11-11 15:51] VITALS: BP 134/68; PULSE 75; RESP 23; O2SAT 91
[2022-11-11 16:04] VITALS: BP 134/68; PULSE 70; RESP 25; O2SAT 91
[2022-11-11 16:18] VITALS: BP 127/65; PULSE 82; RESP 24; O2SAT 93
[2022-11-11] MEDS: Potassium Chloride Oral Soln 20 MEQ/15 ML UDC 40 MEQ PO (16:22)
[2022-11-11 16:31] LABS: Mucous, Urine 0 SEEN /hpf (<or=2+); Squamous Epithelial Cells - UA 0 SEEN /hpf (5-10)
[2022-11-11 16:43] LABS: Color, Urine Yellow (Yellow); Glucose, Dipstick Normal (Normal); Ketone-Dipstick Negative (Negative); Leukocyte Esterase-Dipstick Negative /ul (Negative); Nitrite-Dipstick Negative (Negative); Occult Blood-Urine 25 /ul (Negative); Protein-Dipstick 15 mg/dl (Negative); Urine Bilirubin Dipstick Negative (Negative); Urine Clarity Clear (Clear); Urine Urobilinogen Normal (Normal)
[2022-11-11 16:53] LABS: Bacteria RARE /hpf (None Seen); Red Blood Cells-Urine 0-5 SEEN /hpf (0-5); White Blood Cells 0 SEEN /hpf (0-5)
== END 2022-11-11 16:42 | disposition home or self-care (01) ==
PROVIDERS: Emergency Provider Emergency Medicine; PCP Family Medicine; Visit Provider Emergency Medicine
DX: R55 Syncope and collapse (principal); F31.9 Bipolar disorder, unspecified; F17.210 Nicotine dependence, cigarettes, uncomplicated; E78.5 Hyperlipidemia, unspecified; S50.811A Abrasion of right forearm, initial encounter; E03.9 Hypothyroidism, unspecified; W19.XXXA Unspecified fall, initial encounter
CPT/HCPCS: 70450; 71045; 80053; 81001; 82962; 83605; 83690; 84484; 85025; 93005; 99285

== ENCOUNTER 2024-03-16 13:31 | Emergency (ER) | payer MEDICARE, SELFPAY ==
[2024-03-16 13:33] VITALS: BP 138/123; PULSE 89; RESP 18; TEMP 36; O2SAT 97; BMI 25.9
[2024-03-16 13:54] VITALS: BP 171/70
[2024-03-16 14:00] VITALS: O2SAT 97
--- NOTE | 2024-03-16 14:27 | RAD_ITS ---
STUDY: X-RAY CHEST REASON FOR EXAM: Female, 74 years old. Chest pain TECHNIQUE: Frontal view of the chest COMPARISON: 11/11/2022 FINDINGS: There is a catheter coursing along the right side of the neck and thorax. The lungs are clear. There are no pleural effusions. There is no pneumothorax. The heart is normal in size. The visualized osseous structures are within normal limits. RAD/Chest PA and Lateral IMPRESSION: No acute thoracic pathology. Electronically Signed: Chilango Palacios MD at 14:45 EDT ,
[2024-03-16 14:30] LABS: Absolute Lymphocyte Count 0.92 X10^3/uL (0.83-4.51); Absolute Neutrophil Count 4.1 X10^3/uL (2.0-7.7); Basophil# 0.05 X10^3/uL; Basophil% 0.9 % (0-1); Eosinophil# 0.05 X10^3/uL; Eosinophils% 0.9 % (0-5); Hematocrit 35.3 % (37-47); Hemoglobin 11.1 g/dL (12.0-15.0); Lymphocyte # 0.92 X10^3/ul (0.83-4.51); Lymphocyte % 16.6 % (19-41); Mean Corp Hgb Conc 31.4 g/dL (32-36); Mean Corpuscular Volume 98.6 fL (81-99); Mean Platelet Vol. 11.3 fl (6.2-12.0); Monocyte# 0.36 X10^3/uL; Monocyte% 6.5 % (0-10); NRBC Flagged by Analyzer 0 % (0-5); Neutrophil # 4.14 X10^3/uL (2.7-7.7); Neutrophil % 74.7 % (47-70); Platelet Count 207 K/mm3 (150-450); RBC Distribution Width CV 13.7 % (11.6-14.6); RBC Distribution Width SD 50.1 fl (35.1-43.9); Red Blood Count 3.58 M/mm3 (4.2-5.4); White Blood Count 5.5 K/mm3 (4.4-11.0)
--- NOTE | 2024-03-16 14:43 | EX.ED.DYSGE1 ---
HPI History of Present Illness Chief Complaint: Hypertension Narrative Narrative: Patient is a 74-year-old female with a past medical history of bipolar disorder, depression, anxiety, hypothyroidism, intracranial shunt, hypertension, bone and blood cancer who presents to the emergency department the chief complaint of high blood pressure. According to the patient for the past 2 weeks she has been dealing with high blood pressure and notes that she is following up with her primary care physician and has been started on a new medication. She states that the new medication does not appear to be helping her she notes that her blood pressures been running high at home as well. She states that she has not received her chemotherapy in approximately 2 weeks as they will not give her the medication until her blood pressure is under control. Patient states that overall she just feels fatigued and not well. Patient denies any recent sick contacts. [facility] Medical History Bipolar disorder Depression Anxiety Hypothyroidism History of spinal fracture Smoker Hyperlipidemia Home Medications ?Medication ?Instructions ?Recorded ?Last Taken ?Type lamotrigine 200 mg tablet 25 mg PO DAILY DEPRESSION 11/16/18 11/15/18 History trazodone 50 mg tablet 50 mg PO QHS sleep 11/16/18 11/15/18 History venlafaxine 37.5 mg 37.5 mg PO QHS depression 11/16/18 11/15/18 History capsule,extended release 24 hr aspirin 81 mg tablet,delayed 81 mg PO DAILY 01/18/22 Unknown History release atorvastatin 20 mg tablet 20 mg PO DAILY 01/18/22 Unknown History cholecalciferol (vitamin D3) 125 125 mcg PO DAILY 01/18/22 Unknown History mcg (5,000 unit) tablet (Vitamin D3) cyanocobalamin (vitamin B-12) 1,000 mcg PO QODAY 01/18/22 Unknown History 1,000 mcg tablet diazepam 5 mg tablet 5 mg PO Q8 PRN Muscle Spasm #15 01/18/22 Unknown Rx tabs famotidine 20 mg tablet 20 mg PO DAILY 01/18/22 Unknown History folic acid 1 mg tablet 1 mg PO DAILY 01/18/22 Unknown History levothyroxine 25 mcg tablet 25 mcg PO DAILY 01/18/22 Unknown History meclizine 25 mg tablet 25 mg PO Q6H PRN PRN Dizziness 01/18/22 Unknown History oxycodone-acetaminophen 5 mg-325 1 tab PO Q6H PRN PRN Pain 3 days 01/18/22 Unknown Rx mg tablet #12 TABLETS topiramate 50 mg tablet 50 tab PO BID 01/18/22 Unknown History venlafaxine 75 mg tablet 75 mg PO DAILY 01/18/22 Unknown History amlodipine 5 mg tablet 5 mg PO DAILY #30 tabs 03/16/24 Unknown Rx Allergy/AdvReac Type Severity Reaction Status Date / Time codeine Allergy Other Verified 03/16/24 13:33 Surgical History History of spinal fusion History of appendectomy History of cholecystectomy Social History (Updated 01/18/22 @ 21:[address] Navneet Sands, DO) Smoking Status: Current every day smoker tobacco type: cigarettes substance use type: does not use ROS ROS ED ROS Narrative Constitutional: Planes of generalized fatigue as noted above. Denies any headaches, fevers, chills, lightness, dizziness Eyes: Denies change in vision double vision blurry vision Cardiovascular: Denies chest pain or palpitations Respiratory: Denies coughing wheezing shortness of breath Abdomen: Denies abdominal pain nausea vomiting diarrhea : Denies pain phonation, hematuria, polyuria Neurological: Denies any numbness, weakness, tingling Musculoskeletal: Denies back pain Skin: Denies rashes or lesions EXAM Physical Exam Narrative Exam Narrative: General: Patient was lying in bed rest comfortably did not appear to be in acute distress Head: Atraumatic, normocephalic Eyes: PERRL bilaterally, EOMI bilaterally, no conjunctival injection noted Neck: Soft, supple, trachea midline Cardiovascular: Regular rate and rhythm no murmurs gallops rubs noted Respiratory: Clear to auscultation bilaterally no rales rhonchi or wheezes noted Abdomen: Soft, nondistended, nontender to palpation, bowel sounds present x 4 Extremities: +5/5 strength noted in the bilateral upper and lower extremities, no pedal edema on exam Neurological: Patient was following commands knew that she was at [facility] year is 2023. Patient completed finger-nose test bilaterally without any difficulty, NIH of 0 GCS 15 Skin: Warm, dry, intact Const Vital Signs: 03/16/24 13:32 03/16/24 13:33 03/16/24 13:54 Temperature 96.8 F L Temperature Source Temporal Pulse Rate 89 Respiratory Rate 18 Respiratory Effort Normal Respiratory Pattern Normal Blood Pressure 138/123 H 171/70 H Blood Pressure Mean 128 103 Pulse Ox 97 Oxygen Delivery Method Room Air 03/16/24 14:00 03/16/24 15:39 Temperature Temperature Source Pulse Rate 64 Respiratory Rate Respiratory Effort Respiratory Pattern Blood Pressure 150/68 H Blood Pressure Mean 95 Pulse Ox 97 Oxygen Delivery Method Room Air MDM MDM MDM Narrative Medical decision making narrative: Patient is a 74-year-old female who presented to the emergency department chief complaint of hypertension for the past 2 weeks. Patient will have a workup performed here on the differential diagnosis includes Melamin to essential hypertension, hypertensive urgency, hypertensive emergency, hypothyroidism, hyperthyroidism. Once workup is obtained and reviewed she will be reevaluated. Patient's CBC reviewed and was largely unremarkable no evidence of leukocytosis white blood count normal at 5.5, hemoglobin stable 11.1, platelet count was normal at 207. Patient sodium normal 144, potassium was noted to be 3.3, creatinine was elevated to 1.62 this is slightly elevated from her baseline. Patient's AST and ALT were 18 and 15 respectively, troponin was normal at 16. Patient's EKG reviewed showed sinus rhythm with a rate of 74 bpm. Patient's proBNP normal at 36.8, TSH normal at 1.28. Patient's chest x-ray was reviewed as well and showed no acute cardio or pulmonary processes. Did discuss results with the patient and she states that she is not staying in the hospital she wants to go home. I did call her primary care physician and spoke with Dr. Evans who is recommending adding amlodipine which a prescription was sent to her pharmacy. He states that he has an appointment with her on Thursday. I did discuss this plan with the patient and she is agreeable with this plan she would like to go home. She was encouraged return with worsening symptoms or any concerns. All question concerns answered she is discharged home in stable condition. Lab Data Labs: Laboratory Results - last 24 hr 03/16/24 14:13 WBC 5.5 RBC 3.58 L Hgb 11.1 L Hct 35.3 L MCV 98.6 MCH 31.0 MCHC 31.4 L RDW Std Deviation 50.1 H RDW Coeff of Sabino 13.7 Plt Count 207 MPV 11.3 Immature Gran % (Auto) 0.400 Neut % (Auto) 74.7 H Lymph % (Auto) 16.6 L [place] % (Auto) 6.5 Eos % (Auto) 0.9 Baso % (Auto) 0.9 Absolute Neuts (auto) 4.1 Absolute Lymphs (auto) 0.92 Nucleated RBC % 0 Sodium 144 Potassium 3.3 L Chloride 109 H Carbon Dioxide 27.0 Anion Gap 8 BUN 21 H Creatinine 1.62 H Estim Creat Clear Calc 28.08 Est GFR (MDRD) Af Amer 40 L Est GFR (MDRD) Non-Af 33 L BUN/Creatinine Ratio 13.0 Glucose 101 Calcium 8.6 Total Bilirubin 0.20 Direct Bilirubin 0.09 AST 18 ALT 15 Alkaline Phosphatase 124 H Troponin I High Sens 16 B-Natriuretic Peptide 36.8 Total Protein 6.4 Albumin 3.5 Globulin 2.9 TSH 1.280 Radiography Diagnostic Testing: Clinical Impression(s) from Imaging Studies Chest X-Ray 03/16/24 14:27 IMPRESSION: No acute thoracic pathology. Electronically Signed: Chilango Palacios MD at 14:45 EDT , Discharge Plan Triage Chief Complaint: Hypertension ED Provider: Jesus Quiroz Dx/Rx/DC Orders Clinical Impression: Hypertension Prescriptions: New amlodipine 5 mg tablet 5 mg PO DAILY Qty: 30 0RF No Action venlafaxine 37.5 MG capsule,extended release 24hr 37.5 mg PO QHS lamotrigine 200 MG tablet 25 mg PO DAILY trazodone 50 MG tablet 50 mg PO QHS atorvastatin 20 mg Tablet 20 mg PO DAILY venlafaxine [Effexor] 75 mg Tablet 75 mg PO DAILY cyanocobalamin (vitamin B-12) 1,000 mcg Tablet 1,000 mcg PO QODAY aspirin [Aspir-81] 81 mg Tablet,Delayed Release (Dr/Ec) 81 mg PO DAILY levothyroxine 25 mcg Tablet 25 mcg PO DAILY famotidine 20 mg Tablet 20 mg PO DAILY meclizine 25 mg Tablet 25 mg PO Q6H PRN PRN (Reason: Dizziness) folic acid 1 mg Tablet 1 mg PO DAILY topiramate 50 mg tablet 50 tab PO BID Patient Comments: TAKE 1 TABLET BY MOUTH TWICE A DAY cholecalciferol (vitamin D3) [Vitamin D3] 125 mcg (5,000 unit) Tablet 125 mcg PO DAILY oxycodone-acetaminophen [oxycodone-acetaminophen] 5-325 mg tablet 1 tab PO Q6H PRN PRN (Reason: Pain) 3 Days Qty: 12 0RF diazepam [diazepam] 5 mg tablet 5 mg PO Q8 PRN (Reason: Muscle Spasm) Qty: 15 0RF Primary Care Provider: Efren Evans Referrals: Efren Evans MD [Primary Care Provider] - Activity Restrictions/Additional Instructions: Follow-up with your primary care physician at your scheduled point on Thursday. web support engineer prescription and take as prescribed. Return with worsening symptoms or any other concerns. Print Language: Malay Disposition Disposition: Home, Self Care
[2024-03-16 14:46] LABS: BNP,B-Type NATRIURETIC PEPTIDE 36.8 pg/mL (0-100)
[2024-03-16 14:49] LABS: AST(SGOT) 18 U/L (15-37); Alanine Aminotransfer ALT/SGPT 15 U/L (13-56); Albumin, Serum 3.5 g/dL (3.2-5.0); Alkaline Phosphatase 124 U/L (45-117); Anion Gap 8 (5-15); BUN 21 mg/dL (7-18); Bilirubin, Direct 0.09 mg/dL (0.00-0.30); Calcium,Total 8.6 mg/dL (8.5-10.1); Chloride 109 mmol/L (98-107); Creatinine, Serum 1.62 mg/dL (0.55-1.02); EST Glomerular Filtration Rate 33 mL/min (>60); Est Glom Filt Rate - Afr Amer 40 mL/min (>60); Estimated Creatinine Clearance 28.08 ml/min; Globulin 2.9 g/dL (2.2-4.2); Glucose 101 mg/dL (74-106); Potassium 3.3 mmol/L (3.5-5.1); Protein, Total 6.4 g/dL (6.4-8.2); Sodium Level 144 mmol/L (136-145); Troponin-I HS (w/2H Reflex) 16 pg/mL (3.0-54.0)
[2024-03-16 15:39] VITALS: BP 150/68; PULSE 64
[2024-03-16 16:21] VITALS: BP 154/67; PULSE 63; RESP 16; TEMP 36.6; O2SAT 98
[2024-03-16 16:21] LABS: Reflex Troponin-HS? (from REC) Y
== END 2024-03-16 16:26 | disposition home or self-care (01) ==
PROVIDERS: Emergency Provider Emergency Medicine; PCP Family Medicine; Visit Provider Emergency Medicine
DX: I10 Essential (primary) hypertension (principal); F31.9 Bipolar disorder, unspecified; F17.210 Nicotine dependence, cigarettes, uncomplicated
CPT/HCPCS: 71046; 80048; 80076; 83880; 84443; 84484; 85025; 93005; 99284; A4216

== ENCOUNTER 2024-09-05 13:19 | Emergency (ER) | payer MEDICARE, SELFPAY ==
[2024-09-05] VITALS (7 sets, daily range): BP systolic 140–166; BP diastolic 64–83; PULSE 68–87; RESP 10–26; TEMP 36.6–37.2; O2SAT 92–97; BMI 25.1
--- NOTE | 2024-09-05 13:46 | EKG12_ITS ---
Test Reason : SOB Blood Pressure : */* mmHG Vent. Rate : 74 BPM Atrial Rate : 74 BPM P-R Int : 192 ms QRS Dur : 84 ms QT Int : 390 ms P-R-T Axes : 49 -44 58 degrees QTcB Int : 432 ms Sinus rhythm with Premature atrial complexes Left axis deviation Possible Inferior infarct , age undetermined Abnormal ECG Confirmed by JENNIE ALVARENGA, JUAN PABLO ([id number]), development editor JOSELUIS LARSEN ([id number]) on 09/06/2024 8:50:24 AM Referred By: ADINA/PETRONA Confirmed By: JUAN PABLO SCHNEIDER MD
--- NOTE | 2024-09-05 13:54 | EDS_ITS ---
<Statement entered by Jesus Quiroz DO - 09/05/24 19:18> Patient was seen and examined with nurse felisha Bellamy All components of the history and physical confirmed and agreed. History of present illness and physical exam: Patient is a 74-year-old female with a past medical history of hypertension, hyperlipidemia smokes half pack a day, hypothyroidism who presented to the emergency department with a chief complaint of diffuse bodyaches, cough and not feeling well for the past 3 days. Patient states that she feels like she may have pneumonia again which she came here for to be evaluated. Denies any sick contacts. Review of systems: Great above Physical exam: Agree with above MDM Patient is a 74-year-old female who presented to the emerged part with a chief complaint of generalized not feeling well, cough, shortness of breath. On the differential diagnose includes but not limited to pneumonia, ACS, upper respiratory infection secondary to viral etiology, CHF. Once workup is obtained and reviewed she will be reevaluated. Patient CBC was reviewed and showed a white blood cell count of 2.4, hemoglobin 12.9, platelet count was noted to be 167. Patient sodium was 137, potassium normal at 4, creatinine was elevated 2.04. Patient chest x-ray reviewed by myself and by radiology showed no acute cardiopulmonary processes. Patient's EKG reviewed by myself which showed sinus rhythm with a rate of 74 bpm. Patient did test positive for influenza A here in the emergency department. Patient ambulated well here in the emergency department without any tachycardia or hypoxia. Patient did receive a liter of fluid and we will give a bolus of 500 cc as she has a slight elevation in her creatinine. She was advised to have this rechecked in the next several days. Patient was advised to follow-up with her primary care physician return for symptoms or any concerns. She is agreeable this plan as well as her significant other at bedside all question concerns answered she is discharged home in stable condition. Plan: Final impression: Influenza A Disposition: Patient will be discharged home in stable condition Supervising attending attestation: Jesus Quiroz D.O. 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 Patient states that for the last 3 days, she has been having worsening coughing, she is concerned that she might possibly have pneumonia. She states she has had pneumonia in the past. She states he is more short of breath with exertion. Denies any other complaints. [facility] Medical History Bipolar disorder Depression Anxiety Hypothyroidism History of spinal fracture Smoker Hyperlipidemia Home Medications ?Medication ?Instructions ?Recorded ?Last Taken ?Type lamotrigine 200 mg tablet 25 mg PO DAILY DEPRESSION 11/15/18 History trazodone 50 mg tablet 50 mg PO QHS sleep 11/16/18 11/15/18 History venlafaxine 37.5 mg 37.5 mg PO QHS depression 11/15/18 History capsule,extended release 24 hr aspirin 81 mg tablet,delayed 81 mg PO DAILY 01/18/22 U nknown History release atorvastatin 20 mg tablet 20 mg PO DAILY 01/18/22 Unkn own History cholecalciferol (vitamin D3) 125 125 mcg PO DAILY 01/01 03/24 Unknown History mcg (5,000 unit) tablet (Vitamin D3) cyanocobalamin (vitamin B-12) 1,000 mcg PO QODAY 01/18 Unknown History 1,000 mcg tablet diazepam 5 mg tablet 5 mg PO Q8 PRN Muscle Spasm #15 01/18/22 Unknown Rx tabs famotidine 20 mg tablet 20 mg PO DAILY 01/18/22 Unkn own History folic acid 1 mg tablet 1 mg PO DAILY 01/18/22 Unkno wn History levothyroxine 25 mcg tablet 25 mcg PO DAILY 01/18/22 U nknown History meclizine 25 mg tablet 25 mg PO Q6H PRN PRN Dizzine ss 01/18/22 Unknown History oxycodone-acetaminophen 5 mg-325 1 tab PO Q6H PRN PRN Pain 3 days 01/18/22 Unknown Rx mg tablet #12 TABLETS topiramate 50 mg tablet 50 tab PO BID 01/18/22 Unkno wn History venlafaxine 75 mg tablet 75 mg PO DAILY 01/18/22 Unkn own History amlodipine 5 mg tablet 5 mg PO DAILY #30 tabs 03/16 Unknown Rx Allergy/AdvReac Type Severity Reaction Status Date / Time codeine Allergy Other Verified 09/05/24 13:24 Surgical History History of spinal fusion History of appendectomy History of cholecystectomy Social History (Updated 01/18/22 @ 21:[address] Navneet Sands DO) Smoking Status: Current every day smoker tobacco type: cigarettes substance use type: does not use ROS ROS ED ROS Narrative Constitutional: Negative for fever, weight loss. Positive for chills, weakness Eyes: Negative for vision loss, vision change, double vision ENT: Negative for any sore throat, ear pain, congestion Cardiovascular: Negative for any chest pain, tightness, palpitations Respiratory: Negative for any sputum production, hemoptysis, dyspnea, orthopnea. Positive for cough, dyspnea on exertion Gastrointestinal: Negative for any abdominal pain, nausea, vomiting, diarrhea, constipation, blood in stool, blood in vomit : Negative for any urinary frequency, dysuria, retention, blood in urine Muscle skeletal: Negative for any neck pain, back pain Neurological: Negative for any headache, syncope, dizziness Skin: Negative for any rashes, itching, abrasions, lacerations Psychiatric: Negative for any depression, anxiety, stress, suicidal ideation, homicidal ideation Hematologic: Negative for any excessive bruising, easy bleeding EXAM Physical Exam Narrative Exam Narrative: Vital signs reviewed. Patient is in no obvious vital signs are stable. HEET: Head normocephalic atraumatic, TMs clear bilaterally. Posterior pharynx is clear, moist mucous membranes. Nares clear bilaterally. Neck: Supple with no lymphadenopathy or tenderness. No signs of meningismus. Cardiac: Regular rate and rhythm no murmurs gallops or rubs, equal peripheral pulses bilaterally. Respiratory: Patient did have an increase in adventitious lung sounds to the left lower lobe, I did hear some expiratory wheezes some rhonchorous breath sounds. No chest tenderness. Abdomen: Soft, nontender, nondistended. No abdominal bruit or pulsatile masses. No hepatosplenomegaly Extremities: No peripheral edema, no signs of gross trauma or deformity. Active full range of motion of all extremities. Neuro: Cranial nerves II through XII intact, no focal neurological deficits. Skin: Clean dry and intact with no rash, purpura, petechiae, vesicles or pustules. Backs/flank: No CVA tenderness, no midline spinal tenderness, no deformity. Psych: Normal mood and affect. No SI, HI or acute psychosis. Const Vital Signs: 09/05/24 13:19 09/05/24 13:27 09/05/24 13:49 Temperature 97.9 F Temperature Source Oral Pulse Rate 80 Respiratory Rate 24 H Respiratory Effort Normal Non-Labored Respiratory Depth Normal Respiratory Pattern Normal Blood Pressure 142/64 H Blood Pressure Mean 90 Pulse Ox 94 Oxygen Delivery Method Room Air Room Air Room Air 09/05/24 14:10 09/05/24 14:24 Temperature 97.8 F Temperature Source Oral Pulse Rate 68 71 Respiratory Rate 10 L 26 H Respiratory Effort Respiratory Depth Respiratory Pattern Normal Blood Pressure 140/83 H Blood Pressure Mean 102 Pulse Ox 94 Oxygen Delivery Method Room Air MDM MDM Lab Data Labs: Laboratory Results - last 24 hr 09/05/24 13:27 WBC 2.4 L RBC 4.11 L Hgb 12.9 Hct 38.9 MCV 94.6 MCH 31.4 MCHC 33.2 RDW Std Deviation 51.3 H RDW Coeff of Sabino 14.9 H Plt Count 162 MPV 11.6 Immature Gran % (Auto) 0.400 Neut % (Auto) 55.5 Lymph % (Auto) 23.3 [place] % (Auto) 17.5 H Eos % (Auto) 0.0 Baso % (Auto) 3.3 H Absolute Neuts (auto) 1.3 L Absolute Lymphs (auto) 0.56 L Nucleated RBC % 0 Differential Comment COMMENT Diff Path Review May foll Sodium 137 Potassium 4.0 Chloride 110 H Carbon Dioxide 18.0 L Anion Gap 9 BUN 33 H Creatinine 2.04 H Estim Creat Clear Calc 22.01 Est GFR (MDRD) Af Amer 30 L Est GFR (MDRD) Non-Af 25 L BUN/Creatinine Ratio 16.2 Glucose 92 Calcium 9.0 Radiography Diagnostic Testing: Clinical Impression(s) from Imaging Studies Chest X-Ray 09/05/24 14:00 IMPRESSION: UNREMARKABLE SINGLE VIEW OF THE CHEST AND ABDOMEN. Reading Location: [facility] EKG Sinus rhythm: Attestation: I personally reviewed and interpreted this EKG as follows: Interpretation: Sinus Rhythm Comments: Sinus rhythm, rate 74 bpm, VA interval 180 ms, QRS duration 84 ms, no acute ST elevation, no acute infarct noted. Treatment and Re-Evaluation :: Differential diagnosis includes however is not limited to: COVID-19, influenza, RSV, community-acquired pneumonia, other viral-like illness, fluid overload Patient appears generally well, vital signs are stable, patient is nontoxic- appearing. Presenting to the emergency department with complaints of cough, congestion, some weakness over the last 3 to 4 days. Patient received some basic laboratory values, two-view chest x-ray. Breathing treatments will be ordered. Viral swab will be obtained. Patient will need to be reevaluated. Patient's vital signs are stable on room air. All radiologic examinations were read, reviewed by the emergency department attending. From these reads, a plan of care will be put in place. Patient CBC shows slight leukopenia with white blood count 2.4, hemoglobin stable at 12.9. Chemistries did show slight increase in creatinine at 2.04, 6 months ago, is 1.62, patient did look slightly dry, given 1 L and then repeated with a 500 cc bolus. Patient's chest x-ray showed no acute process. Patient was positive for influenza A. Patient will need to be ambulated around the department with a pulse oxygenation. Patient responded well to treatment. Patient was able to ambulate around the department, did not drop below 94%. I spoke with the patient at length. Patient will be diagnosed with influenza A, should be stable for discharge. Patient will follow-up outpatient, I did speak with her regarding her creatinine. All questions answered, stable for discharge. Discharge Plan Triage Chief Complaint: Shortness of Breath ED Midlevel Provider: Josesito Fishman ED Provider: Jesus Quiroz Dx/Rx/DC Orders Prescriptions: No Action venlafaxine 37.5 MG capsule,extended release 24hr 37.5 mg PO QHS lamotrigine 200 MG tablet 25 mg PO DAILY trazodone 50 MG tablet 50 mg PO QHS atorvastatin 20 mg Tablet 20 mg PO DAILY venlafaxine [Effexor] 75 mg Tablet 75 mg PO DAILY cyanocobalamin (vitamin B-12) 1,000 mcg Tablet 1,000 mcg PO QODAY aspirin [Aspir-81] 81 mg Tablet,Delayed Release (Dr/Ec) 81 mg PO DAILY levothyroxine 25 mcg Tablet 25 mcg PO DAILY famotidine 20 mg Tablet 20 mg PO DAILY meclizine 25 mg Tablet 25 mg PO Q6H PRN PRN (Reason: Dizziness) folic acid 1 mg Tablet 1 mg PO DAILY topiramate 50 mg tablet 50 tab PO BID Patient Comments: TAKE 1 TABLET BY MOUTH TWICE A DAY cholecalciferol (vitamin D3) [Vitamin D3] 125 mcg (5,000 unit) Tablet 125 mcg PO DAILY oxycodone-acetaminophen [oxycodone-acetaminophen] 5-325 mg tablet 1 tab PO Q6H PRN PRN (Reason: Pain) 3 Days Qty: 12 0RF diazepam [diazepam] 5 mg tablet 5 mg PO Q8 PRN (Reason: Muscle Spasm) Qty: 15 0RF amlodipine 5 mg tablet 5 mg PO DAILY Qty: 30 0RF Primary Care Provider: Efren Evans Referrals: Efren Evans MD [Primary Care Provider] - Print Language: Bengali
[2024-09-05 13:57] LABS: Absolute Lymphocyte Count 0.56 X10^3/uL (0.83-4.51); Absolute Neutrophil Count 1.3 X10^3/uL (2.0-7.7); Basophil# 0.08 X10^3/uL; Basophil% 3.3 % (0-1); Hematocrit 38.9 % (37-47); Hemoglobin 12.9 g/dL (12.0-15.0); Lymphocyte # 0.56 X10^3/ul (0.83-4.51); Lymphocyte % 23.3 % (19-41); Mean Corp Hgb Conc 33.2 g/dL (32-36); Mean Corpuscular Hgb 31.4 pg (27.0-32.0); Mean Corpuscular Volume 94.6 fL (81-99); Mean Platelet Vol. 11.6 fl (6.2-12.0); Monocyte# 0.42 X10^3/uL; Monocyte% 17.5 % (0-10); NRBC Flagged by Analyzer 0 % (0-5); Neutrophil # 1.33 X10^3/uL (2.7-7.7); Neutrophil % 55.5 % (47-70); POSITIVE DIFFERENTIAL YES; Platelet Count 162 K/mm3 (150-450); RBC Distribution Width CV 14.9 % (11.6-14.6); RBC Distribution Width SD 51.3 fl (35.1-43.9); Red Blood Count 4.11 M/mm3 (4.2-5.4); White Blood Count 2.4 K/mm3 (4.4-11.0)
[2024-09-05 13:59] LABS: Differential Indicated SCAN CRITERIA MET
--- NOTE | 2024-09-05 14:00 | RAD_ITS ---
PROCEDURE: CHEST PA AND LATERAL REASON FOR EXAM: Hypertension/pneumonia. TECHNIQUE: Single frontal image including the chest and abdomen. COMPARISON: 03/16/2024. FINDINGS: The cardiothymic contour is normal. The lungs are hyperaerated but clear. Bowel gas pattern is normal. No evidence of bowel obstruction or free air. The bones are unremarkable. No radiopaque foreign body is identified. RAD/Chest PA and Lateral IMPRESSION: UNREMARKABLE SINGLE VIEW OF THE CHEST AND ABDOMEN. Reading Location: [id number]
[2024-09-05] MEDS: Ipratropium/Albuterol Sulfate 3 ML AMPUL.NEB INHALATION (14:10)
[2024-09-05] MEDS: Albuterol 2.5 MG/3 ML VIAL.NEB. INHALATION (14:10)
[2024-09-05 14:15] LABS: Anion Gap 9 (5-15); BUN 33 mg/dL (7-18); BUN/Creat Ratio 16.2 RATIO (10-20); Chloride 110 mmol/L (98-107); Creatinine, Serum 2.04 mg/dL (0.55-1.02); EST Glomerular Filtration Rate 25 mL/min (>60); Est Glom Filt Rate - Afr Amer 30 mL/min (>60); Estimated Creatinine Clearance 22.01 ml/min; Glucose 92 mg/dL (74-106); Sodium Level 137 mmol/L (136-145)
[2024-09-05] MEDS: 0.9% Normal Saline (1000mL) 1,000 ML 999 ML IV (14:39)
[2024-09-05 15:26] LABS: BNP,B-Type NATRIURETIC PEPTIDE 107.8 pg/mL (0-100)
[2024-09-05 15:36] LABS: Troponin-I HS 30 pg/mL (3.0-54.0)
[2024-09-05] MEDS: 0.9% Normal Saline (500mL Bag) 500 ML 999 ML IV (15:39)
[2024-09-06 14:03] LABS: Pathologist Review Reviewed
== END 2024-09-05 16:21 | disposition home or self-care (01) ==
PROVIDERS: Nurse Practitioner; Emergency Provider Emergency Medicine; PCP Family Medicine; Visit Provider Emergency Medicine
DX: J10.1 Influenza due to other identified influenza virus with other respiratory manifestations (principal); F31.9 Bipolar disorder, unspecified; F17.210 Nicotine dependence, cigarettes, uncomplicated
CPT/HCPCS: 71046; 80048; 83880; 84484; 85025; 87631; 93005; 94640; 96360; 99285; A4216

== ENCOUNTER 2024-09-28 17:40 | Emergency (ER) | payer MEDICARE, SELFPAY ==
[2024-09-28 17:44] VITALS: BP 154/76; PULSE 80; RESP 18; TEMP 36.6; O2SAT 95
--- NOTE | 2024-09-28 17:48 | EKG12_ITS ---
Test Reason : SYNCOPE Blood Pressure : */* mmHG Vent. Rate : 77 BPM Atrial Rate : 77 BPM P-R Int : 202 ms QRS Dur : 98 ms QT Int : 412 ms P-R-T Axes : 27 -55 60 degrees QTcB Int : 466 ms Normal sinus rhythm Left anterior fascicular block Nonspecific ST and T wave abnormality Abnormal ECG Confirmed by Ariel Newby ([id number]), editor in chief newspaper JOSELUIS LARSEN ([id number]) on 09/29/2024 9:33:48 AM Referred By: LUH/ADINA Confirmed By: Ariel Newby
[2024-09-28 19:49] LABS: Absolute Lymphocyte Count 0.63 X10^3/uL (0.83-4.51); Absolute Neutrophil Count 0.8 X10^3/uL (2.0-7.7); Basophil# 0.02 X10^3/uL; Eosinophil# 0.36 X10^3/uL; Eosinophils% 17.9 % (0-5); Hematocrit 31.7 % (37-47); Hemoglobin 10.8 g/dL (12.0-15.0); Lymphocyte # 0.63 X10^3/ul (0.83-4.51); Lymphocyte % 31.3 % (19-41); Mean Corp Hgb Conc 34.1 g/dL (32-36); Mean Corpuscular Hgb 30.7 pg (27.0-32.0); Mean Corpuscular Volume 90.1 fL (81-99); Mean Platelet Vol. 13.4 fl (6.2-12.0); Monocyte# 0.24 X10^3/uL; Monocyte% 11.9 % (0-10); NRBC Flagged by Analyzer 0 % (0-5); Neutrophil # 0.75 X10^3/uL (2.7-7.7); Neutrophil % 37.4 % (47-70); POSITIVE DIFFERENTIAL YES; Platelet Count 111 K/mm3 (150-450); RBC Distribution Width CV 15.2 % (11.6-14.6); RBC Distribution Width SD 48.5 fl (35.1-43.9); Red Blood Count 3.52 M/mm3 (4.2-5.4)
[2024-09-28 20:01] LABS: Differential Indicated SCAN CRITERIA MET
[2024-09-28 20:03] VITALS: BP 141/73; BP 152/82; BP 153/55; PULSE 70; PULSE 88
[2024-09-28 20:30] VITALS: BP 152/72; PULSE 64; RESP 15; O2SAT 92
[2024-09-28 20:44] LABS: Anisocytosis 1+; Platelet Morphology CLUMPED; Polychromasia 1+
[2024-09-28 20:46] LABS: Platelet Estimate ADEQUATE (ADEQ)
[2024-09-28 20:47] LABS: Burr Cells 1+
[2024-09-28 20:48] LABS: Ovalocyte 1+
[2024-09-28 20:49] LABS: Atypical Lymphocyte 1+ %; Bite Cell RARE
[2024-09-28 21:17] LABS: ALB/GLOB Ratio 1.5 RATIO (0.9-2.4); AST(SGOT) 18 U/L (<=31); Alanine Aminotransfer ALT/SGPT 11 U/L (<=34); Albumin, Serum 3.5 g/dL (3.4-4.8); Alkaline Phosphatase 117 U/L (35-104); Anion Gap 12 (5-15); BUN 16 mg/dL (4-19); BUN/Creat Ratio 10.2 RATIO (10-20); Calcium 8.1 mg/dL (7.6-11.0); Carbon Dioxide 23.2 mmol/L (22.0-29.0); Chloride 104 mmol/L (96-108); Creatinine, Serum 1.6 mg/dL (0.6-1.0); EST Glomerular Filtration Rate 34 (>60); Globulin 2.4 g/dL (2.2-4.2); Glucose 93 mg/dL (70-99); Potassium 2.5 mmol/L (3.3-5.1); Protein, Total 5.8 g/dL (5.9-8.4); Sodium Level 139 mmol/L (133-145); Total Bilirubin 0.28 mg/dL (0.00-1.30)
--- NOTE | 2024-09-28 21:27 | EX.ED.DYSGE1 ---
HPI History of Present Illness Chief Complaint: Syncope Detail of Chief Complaint: Near syncope never passed out. Informant: patient Onset/Context/Timing Onset: Days Context: Gradual Onset Timing: Intermittent Current Severity: Mild Maximum Severity: Mild Narrative Narrative: 74-year-old female history of multiple myeloma taking oral chemo therapy at home and every 21 days gets an abdominal injection. Sees oncologist in [place]. She does not feel well last several weeks she had the flu 5 weeks ago. Says she is never really recovered. Has nausea but no vomiting or diarrhea. She was seen today by her oncologist in [place] they gave her IV fluids. Thought she needed to be evaluated in the emergency department. She has been waiting in the waiting room for period of time due to the volume and acuity today. Prior similar symptoms: Yes Recent Illness/Hospitalization: No PFSH [facility] Medical History Bipolar disorder Depression Anxiety Hypothyroidism History of spinal fracture Smoker Hyperlipidemia Home Medications ?Medication ?Instructions ?Recorded ?Last Taken ?Type lamotrigine 200 mg tablet 25 mg PO DAILY DEPRESSION 11/16/18 11/15/18 History trazodone 50 mg tablet 50 mg PO QHS sleep 11/16/18 11/15/18 History venlafaxine 37.5 mg 37.5 mg PO QHS depression 11/16/18 11/15/18 History capsule,extended release 24 hr aspirin 81 mg tablet,delayed 81 mg PO DAILY 01/18/22 Unknown History release atorvastatin 20 mg tablet 20 mg PO DAILY 01/18/22 Unknown History cholecalciferol (vitamin D3) 125 125 mcg PO DAILY 01/18/22 Unknown History mcg (5,000 unit) tablet (Vitamin D3) cyanocobalamin (vitamin B-12) 1,000 mcg PO QODAY 01/18/22 Unknown History 1,000 mcg tablet diazepam 5 mg tablet 5 mg PO Q8 PRN Muscle Spasm #15 01/18/22 Unknown Rx tabs famotidine 20 mg tablet 20 mg PO DAILY 01/18/22 Unknown History folic acid 1 mg tablet 1 mg PO DAILY 01/18/22 Unknown History levothyroxine 25 mcg tablet 25 mcg PO DAILY 01/18/22 Unknown History meclizine 25 mg tablet 25 mg PO Q6H PRN PRN Dizziness 01/18/22 Unknown History oxycodone-acetaminophen 5 mg-325 1 tab PO Q6H PRN PRN Pain 3 days 01/18/22 Unknown Rx mg tablet #12 TABLETS topiramate 50 mg tablet 50 tab PO BID 01/18/22 Unknown History venlafaxine 75 mg tablet 75 mg PO DAILY 01/18/22 Unknown History amlodipine 5 mg tablet 5 mg PO DAILY #30 tabs 03/16/24 Unknown Rx Allergy/AdvReac Type Severity Reaction Status Date / Time codeine Allergy Other Verified 09/28/24 17:44 Surgical History History of spinal fusion History of appendectomy History of cholecystectomy Social History Smoking Status: Current every day smoker tobacco type: cigarettes substance use type: does not use ROS ROS ED ROS Narrative Generalized weakness. Constitutional Constitutional ED: Denies chills or fever(s) Eyes Eyes: Denies blurry vision ENT ENT ED: Denies ear pain Cardiovascular Cardiovascular: Denies chest pain Respiratory/Chest Respiratory/Chest: Denies cough or dyspnea Gastrointestinal Gastrointestinal: Reports nausea; Denies abdominal pain, constipation, diarrhea, melena or vomiting Genitourinary Genitourinary ED: Denies dysuria or hematuria Musculoskeletal Musculoskeletal: Denies arthralgias or back pain Integumentary Denies abscess Neurologic Neurologic: Denies headache(s) Psychiatric Psychiatric: Denies anxiety or depression Endocrine Endocrinology: Denies cold intolerance Hematologic/Lymphatic Hematologic/Lymphatic: Reports none Allergic/Immunologic Allergic/Immunologic ED: Denies mouth swelling, tongue swelling or urticaria EXAM Physical Exam Narrative Exam Narrative: Well-appearing 74-year-old female. Vital signs are stable afebrile. She does not look septic toxic any distress. Pulse ox 95% on room air no signs of hypoxia. H EENT exam pupils round react to light. Mildly dry mucous members. Neck nontender no JVD. Lungs clear to auscultation bilaterally. Heart regular rhythm no murmur. Rate about 80. Chest wall ribs nontender. Abdomen soft nontender. Moving all 4 extremities. 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 Dorsi plantarflexion intact. Calves nontender no edema. Back nontender. Neurologically she is awake and alert no focal motor deficits. Benign exam. at bedside. Const Vital Signs: 09/28/24 17:44 09/28/24 19:42 09/28/24 20:03 Temperature 98 F Temperature Source Oral Pulse Rate 80 Pulse Rate [Lying] 70 Pulse Rate [Standing (for 1 minute prior to obtaining)] 88 Respiratory Rate 18 Blood Pressure 154/76 H Blood Pressure [Lying] 153/55 H Blood Pressure [Sitting (for 1 minute prior to obtaining)] 152/82 H Blood Pressure [Standing (for 1 minute prior to obtaining)] 141/73 H Blood Pressure Mean 102 Blood Pressure Mean [Lying] 87 Blood Pressure Mean [Sitting (for 1 minute prior to obtaining)] 105 Blood Pressure Mean [Standing (for 1 minute prior to obtaining)] 95 Pulse Ox 95 Oxygen Delivery Method Room Air Room Air 09/28/24 20:30 09/28/24 22:00 Temperature Temperature Source Pulse Rate 64 Pulse Rate [Lying] Pulse Rate [Standing (for 1 minute prior to obtaining)] Respiratory Rate 15 20 H Blood Pressure 152/72 H Blood Pressure [Lying] Blood Pressure [Sitting (for 1 minute prior to obtaining)] Blood Pressure [Standing (for 1 minute prior to obtaining)] Blood Pressure Mean 98 Blood Pressure Mean [Lying] Blood Pressure Mean [Sitting (for 1 minute prior to obtaining)] Blood Pressure Mean [Standing (for 1 minute prior to obtaining)] Pulse Ox 92 Oxygen Delivery Method Room Air Positive well nourished and well developed; Negative for cachectic, contractures or unkempt General Appearance ED: well developed and NAD; Negative for unkempt, cachectic, contractures, cyanotic, diaphoretic or pallor Nutritional Appearance: Negative for cachectic HEENT Reports dry mucous membranes; Denies moist mucous membranes Negative for trauma or tenderness Mouth ED: Yes dry mucous membranes Mouth: dry mucous membranes Eyes PERRL and EOMs intact bilaterally Neck no lymphadenopathy, supple and no JVD General: Negative for tenderness Chest Wall inspection of chest normal and palpation of chest normal Resp normal respiratory effort and clear to auscultation bilaterally Cardio regular rate, regular rhythm, S1 normal heart sound, S2 normal heart sound and no murmurs GI normal to inspection, nondistended, normoactive bowel sounds, non-tender, non-distended and no masses Auscultation: normoactive bowel sounds Palpation: soft; Negative for tender, guarding or rebound tenderness present Back/Spine no CVA tenderness General Back: Negative for CVA tenderness Cervical Spine: Negative for cervical spine tenderness Thoracic Spine / Upper Back: Negative for thoracic spinal tenderness Lumbar Spine / Lower Back: Negative for lumbar spinal tenderness Extremity normal to inspection General Extremety ED: Negative for edema or tenderness General Extremity: Negative for edema Neuro oriented x3 and CN's II-XII intact bilaterally Sensorium / Orientation: alert; Negative for orientation impaired, lethargic or stuporous Motor Exam: strength 5/5 throughout Psych mental status grossly normal Appearance: Negative for unkempt Attitude: No agitated Mood & Affect: Negative for depressed, anxious or tearful Skin no rashes or lesions noted General Skin Exam: Negative for jaundice or pallor Lesions: No lesion noted Rashes: No rashes noted MDM MDM MDM Narrative Medical decision making narrative: 74-year-old female multiple myeloma on chemotherapy sent in for near syncope. Exam benign. She has a low white count so her oncologist wanted me to send blood cultures. She clinically has no signs of infection on exam. Repeat exam patient was doing well. Patient was very frustrated due to the delays today due to the volume and acuity in the emergency department which I apologize for multiple times. Her orthostatic vital signs were negative. Blood cultures were obtained per her oncologist wanted them obtained due to her neutropenia. I went back to reevaluate the patient at 11:25 PM and she had left. She had a doctor's appointment tomorrow. Told the nurse that she would follow-up then. I tried to contact her via phone no one picked up. I did send her in a prescription for potassium replacement. History & Record Review Discussion w/independent historian: Patient and Family Additional record(s) reviewed:: Prior inpatient record, Prior outpatient record, Prior ED visit and Prior labs Lab Data Attestation: I reviewed the patient's lab results. Lab results narrative: CBC shows a white count of 2.0. H&H 10.8 and 31. Platelets 111. Electrolytes show potassium of 2.5. Gap of 12. BUN is 16 creatinine 1.6 consistent with her baseline. Liver enzymes unremarkable other than alkaline phosphatase of 117. COVID and flu negative. Labs: Laboratory Results - last 24 hr 09/28/24 19:14 WBC 2.0 L RBC 3.52 L Hgb 10.8 L Hct 31.7 L MCV 90.1 MCH 30.7 MCHC 34.1 RDW Std Deviation 48.5 H RDW Coeff of Sabino 15.2 H Plt Count 111 L MPV 13.4 H Immature Gran % (Auto) 0.500 Neut % (Auto) 37.4 L Lymph % (Auto) 31.3 [place] % (Auto) 11.9 H Eos % (Auto) 17.9 H Baso % (Auto) 1.0 Absolute Neuts (auto) 0.8 L Absolute Lymphs (auto) 0.63 L Nucleated RBC % 0 Atypical Lymphocytes 1+ Platelet Estimate ADEQUATE Plt Morphology Comment CLUMPED Polychromasia 1+ Anisocytosis 1+ Ovalocytes 1+ [place] Cells 1+ Bite Cells RARE Sodium 139 Potassium 2.5 L* Chloride Direct 104 Carbon Dioxide 23.2 Anion Gap 12 BUN 16 Creatinine 1.6 H Est GFR (MDRD) Non-Af 34 L BUN/Creatinine Ratio 10.2 Glucose 93 Calcium 8.1 Total Bilirubin 0.28 AST 18 ALT 11 Alkaline Phosphatase 117 H Total Protein 5.8 L Albumin 3.5 Globulin 2.4 Albumin/Globulin Ratio 1.5 Rhythm Strip Rhythm Strip: Sinus Rhythm Rate: 77 Ectopy: None EKG Initial EKG: Attestation: I personally reviewed and interpreted this EKG as follows: Interpretation: Sinus Rhythm and No Acute Injury Pattern Comments: Normal sinus rhythm rate of 77 no acute signs of VT or ischemia. Left anterior fascicular block. Discharge Plan Triage Chief Complaint: Syncope ED Provider: Jasson Villarreal Dx/Rx/DC Orders Clinical Impression: Near syncope, History of multiple myeloma, Acute hypokalemia, History of chemotherapy Instructions: ED Hypokalemia Prescriptions: No Action venlafaxine 37.5 MG capsule,extended release 24hr 37.5 mg PO QHS lamotrigine 200 MG tablet 25 mg PO DAILY trazodone 50 MG tablet 50 mg PO QHS atorvastatin 20 mg Tablet 20 mg PO DAILY venlafaxine [Effexor] 75 mg Tablet 75 mg PO DAILY cyanocobalamin (vitamin B-12) 1,000 mcg Tablet 1,000 mcg PO QODAY aspirin [Aspir-81] 81 mg Tablet,Delayed Release (Dr/Ec) 81 mg PO DAILY levothyroxine 25 mcg Tablet 25 mcg PO DAILY famotidine 20 mg Tablet 20 mg PO DAILY meclizine 25 mg Tablet 25 mg PO Q6H PRN PRN (Reason: Dizziness) folic acid 1 mg Tablet 1 mg PO DAILY topiramate 50 mg tablet 50 tab PO BID Patient Comments: TAKE 1 TABLET BY MOUTH TWICE A DAY cholecalciferol (vitamin D3) [Vitamin D3] 125 mcg (5,000 unit) Tablet 125 mcg PO DAILY oxycodone-acetaminophen [oxycodone-acetaminophen] 5-325 mg tablet 1 tab PO Q6H PRN PRN (Reason: Pain) 3 Days Qty: 12 0RF diazepam [diazepam] 5 mg tablet 5 mg PO Q8 PRN (Reason: Muscle Spasm) Qty: 15 0RF amlodipine 5 mg tablet 5 mg PO DAILY Qty: 30 0RF Primary Care Provider: Efren Evans Referrals: Efren Evans MD [Primary Care Provider] - Keep Pili appointment Activity Restrictions/Additional Instructions: Plenty of fluids and rest. Follow-up with your doctors appointment tomorrow. I sent you a prescription for potassium. Your potassium is low today at 2.5. No need to be rechecked in 1 to 2 weeks. Print Language: Danish Disposition Disposition: Home, Self Care
[2024-09-28 22:00] VITALS: RESP 20
--- NOTE | 2024-09-28 23:19 | ED.RN ---
Pt and family has been upset about the wait [place] and not happy about lab draw. Pt refused IV fluids and her and her have been upset about the wait time. Educated the pt and about the department being very busy and they wre not satified. Pt's and the pt demanded that the Iv be removed and a wheelchair. This nurse removed the Iv and the got the wheekchair.Empathy given. Dr Villarreal made aware.Pt left prior to md re-evalating.
== END 2024-09-28 23:56 | disposition home or self-care (01) ==
PROVIDERS: Emergency Provider Emergency Medicine; PCP Family Medicine; Visit Provider Emergency Medicine
DX: R55 Syncope and collapse (principal); F31.9 Bipolar disorder, unspecified; R11.0 Nausea; Z92.21 Personal history of antineoplastic chemotherapy; Z79.82 Long term (current) use of aspirin; E03.9 Hypothyroidism, unspecified; F41.9 Anxiety disorder, unspecified; E78.5 Hyperlipidemia, unspecified; Z90.49 Acquired absence of other specified parts of digestive tract; Z98.1 Arthrodesis status; F17.210 Nicotine dependence, cigarettes, uncomplicated; E87.6 Hypokalemia; Z85.79 Personal history of other malignant neoplasms of lymphoid, hematopoietic and related tissues
CPT/HCPCS: 36415; 80053; 85025; 87040; 87631; 93005; 96360; 99285; A4216